=== PATIENT | male | born 1930 | race Caucasian/White ===

== ENCOUNTER 2016-06-20 08:31 | Emergency (ER) | payer OTHER ==
[~2016-06-20] VITALS: Ht 180.3 cm; Wt 82.6 kg
[~2016-06-20 08:31] MED LIST: FLM4 PO; FLUT0.0529 NAE; LSN25 PO; SENN-104 PO
[2016-06-20 08:44] VITALS: TEMP 36.3; Ht 180.3 cm; Wt 82.6 kg
[2016-06-20] MEDS ORDERED: LSN25 PO (09:06)
[2016-06-20] MEDS ORDERED: FLM4 PO (09:06)
[2016-06-20 09:40] VITALS: BP 144/79; PULSE 76; O2SAT 97
--- NOTE | 2016-06-20 17:19 | EMERGENCY ROOM VISIT NOTE ---
ED Visit Note First contact with patient: 08:49 Chief Complaint: Tick bite. History of Present Illness: Mr. Ghosh is an 86-year-old white male who ambulates into the ED accompanied by his complaining of a tick embedded on the left side of his scrotum. Patient reports that he was showering this morning and felt something odd on the left side of the scrotum. He had his come look at it and they observed the tick. He is not exactly sure when and embedded himself on the scrotum. Currently he is not having any symptoms and denies any fevers, chills , sweats, skin eruptions, skin color changes, joint pain, nausea, vomiting, scrotal pain, urinary symptoms. Review of Systems: As noted above in history of present illness. Past Medical History: Hypertension, skin cancer, status post surgeries for renal cancer, prostrate cancer and unspecified hernias. Current Medications: Tamsulosin, lisinopril. Allergies to Medications: Patient denies. Social History: Patient is currently retired; he feels safe in his home environment; he denies tobacco use and admits to alcohol use. Tetanus Immunization Status: 2002. Physical Examination: Vital Signs: Date Time Temp Pulse Resp B/P Pulse Ox O2 Delivery O2 Flow Rate FiO2 06/20/16 09:40 76 18 144/79 97 06/20/16 08:44 36.3 76 18 144/79 97 Room Air GENERAL: 86-year-old male in no acute distress, nontoxic-appearing, afebrile and hemodynamically stable. NEUROLOGICAL: Awake, alert and oriented to person, place and time. Answering questions appropriately and following commands. Normal gait. Good hand eye coordination. No focal motor sensory deficits. SKIN: Warm, dry and pink. No soft tissue eruptions noted. THORAX: Lungs sounds are clear to auscultation and equal bilaterally with symmetrical chest wall. ABDOMEN: Flat, soft and nontender. Positive bowel sounds in all quadrants. No guarding, rigidity or organomegaly. GENITALS: Circumcised, mature penis. No rashes or erythema. No drainage from the meatus. Scrotum is not erythematous or edematous. I do note that there is a tick embedded over the left lateral scrotum. There is no local erythema or edema. There is no localized tenderness. After removal of the tick a second assessment was performed and showed the same. ED Course: Patient is assessed as noted above. Tick Removal: The left side of the scrotum was cleansed with antibacterial soap and water. Using a tick twister tick was easily removed on the first attempt. The area where the tick was embedded was re-cleansed with antibacterial soap and water and a small tab of antibiotic ointment was applied. Patient was educated about tonight's findings and instructed on his treatment plan; he verbalizes understanding and agreement with this plan. Clinical Impression: Tick bite. Disposition: Patient discharged home in stable condition accompanied by his ; prior to departure he was reassessed and remained pain and symptom-free. Plan: Comfort measures, wound care and signs of infection and signs of Lyme's disease were discussed with the patient. Patient was encouraged to follow-up with family physician or return to the ED for any signs of infection, signs of Lyme's disease or any new/concerning symptoms.
== END 2016-06-20 09:40 | disposition home or self-care (01) ==
LOC: C.EDB 08:32 → C.EDA 09:40
DX: S30.94XA Unspecified superficial injury of scrotum and testes, initial encounter (principal); W57.XXXA Bitten or stung by nonvenomous insect and other nonvenomous arthropods, initial encounter; I10 Essential (primary) hypertension; Z85.828 Personal history of other malignant neoplasm of skin; Z85.46 Personal history of malignant neoplasm of prostate

== ENCOUNTER → 2016-09-21 | Outpatient (CLI) | payer OTHER ==
[~2016-09-21] MED LIST changes: -FLUT0.0529 NAE; -SENN-104 PO
== END | disposition home or self-care (01) ==
LOC: C.PATHSPEC 11:38
PROVIDERS: ATTEND Ophthalmology
DX: L98.0 Pyogenic granuloma (principal); H11.89 Other specified disorders of conjunctiva

== ENCOUNTER → 2017-01-14 | Outpatient (CLI) | payer OTHER ==
--- NOTE | 2017-01-14 10:01 | DIAGNOSTIC IMAGING REPORT ---
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 No evidence for cardiac enlargement. No focal infiltrate. Diaphragms are smooth. IMPRESSION: Chronic change. No acute process. No change from the prior study. The above report was generated using voice recognition software. It may contain grammatical, syntax or spelling errors. Electronically signed by: Charles Colbert M.D. 01/14/2017 10:00 AM Dictated Date/Time: 01/14/2017 9:59 AM
== END | disposition home or self-care (01) ==
LOC: C.RAD 09:42
PROVIDERS: ATTEND Urology
DX: C64.9 Malignant neoplasm of unspecified kidney, except renal pelvis (principal)

== ENCOUNTER → 2017-06-08 | Outpatient (CLI) | payer OTHER ==
[2017-06-08 10:20] LABS: BASO % 0.6 %; BASO ABS # 0.03 K/uL (0-0.2); EOS % 2.9 %; EOS ABS # 0.15 K/uL (0-0.5); HEMATOCRIT 43.3 % (42-52); HEMOGLOBIN 14.7 g/dL (14.0-18.0); LYMPH % 43.1 %; LYMPH ABS # 2.23 K/uL (1.2-3.4); MEAN CELL VOLUME 95.4 fL (80-100); MEAN CORPUSCULAR HEMOGLOBIN 32.4 pg (25-34); MEAN CORPUSCULAR HGB CONC 33.9 g/dl (32-36); MEAN PLATELET VOLUME 11.3 fL (7.4-10.4); MONO % 11.6 %; NEUT % 41.8 %; NEUT ABS # 2.17 K/uL (1.4-6.5); PLATELET COUNT 167 K/uL (130-400); RED CELL DISTRIBUTION WIDTH CV 12.6 % (11.5-14.5); RED CELL DISTRIBUTION WIDTH SD 43.8 fL (36.4-46.3); WHITE BLOOD COUNT 5.18 K/uL (4.8-10.8)
[2017-06-08 10:34] LABS: ALBUMIN 3.5 gm/dl (3.4-5.0); ALT/SGPT 27 U/L (12-78); AST/SGOT 23 U/L (15-37); BLOOD UREA NITROGEN 20 mg/dl (7-18); CALCIUM 8.5 mg/dl (8.5-10.1); CARBON DIOXIDE 28 mmol/L (21-32); CREATININE 1.22 mg/dl (0.60-1.40); GLUCOSE 90 mg/dl (70-99); POTASSIUM 4.3 mmol/L (3.5-5.1); SODIUM 138 mmol/L (136-145)
[2017-06-08 10:37] LABS: HEMOGLOBIN A1C 5.6 % (4.5-5.6)
[2017-06-08 10:44] LABS: ALKALINE PHOSPHATASE 86 U/L (45-117); TOTAL PROTEIN 7.1 gm/dl (6.4-8.2)
[2017-06-10 05:40] LABS: METHYLMALONIC ACID 268 NMOL/L (87-318)
== END ==
LOC: C.LABVPSUW 09:21
PROVIDERS: ATTEND Internal Medicine Critical Care Medicine
DX: D64.9 Anemia, unspecified (principal); G62.9 Polyneuropathy, unspecified; E03.9 Hypothyroidism, unspecified

== ENCOUNTER → 2017-06-24 | Outpatient (CLI) | payer OTHER ==
[~2017-06-24] MED LIST changes: +CEPH500C2 PO; +FLUT0.15 INTNAS; +HYDR-5688 PO; +SENN-91 PO
== END | disposition home or self-care (01) ==
LOC: C.CPL 10:27
PROVIDERS: ATTEND Surgery
DX: Z01.818 Encounter for other preprocedural examination (principal); K40.91 Unilateral inguinal hernia, without obstruction or gangrene, recurrent; R94.31 Abnormal electrocardiogram [ECG] [EKG]

== ENCOUNTER 2017-06-30 09:24 | Observation (INO) | payer OTHER ==
[2017-06-25 08:19] VITALS: BMI 25.0
[2017-06-28 14:30] VITALS: O2SAT 98
[~2017-06-30] VITALS: Ht 180.3 cm; Wt 81.8 kg
[2017-06-30] VITALS (9 sets, daily range): BP systolic 138–160; BP diastolic 81–96; PULSE 70–96; TEMP 36.5–36.8; O2SAT 94–99; Ht 180.3 cm; Wt 81.8 kg
[~2017-06-30 09:24] MED LIST changes: +ATROPINE SULFATE 0.1 MG/ML 5ML SYR IV PRN; +CEFAZOLIN 2000MG IV PUSH 15 ML IV SCH; -CEPH500C2 PO; +EpHEDrine SULFATE INJ 50 MG/ML AMP IV PRN; -HYDR-5688 PO; +HYDROmorphone INJ 2 MG/ML SYR/VIAL IV PRN; +LACTATED RINGER'S 1000ML IV SCH; +ONDANSETRON INJ 2 MG/ML 2 ML VIAL IV PRN; +PHENYLEPHRINE 100MCG/ML 5ML SYR IV PRN
--- NOTE | 2017-06-30 10:26 | History & Physical Bridge Note ---
H&P Re-Evaluation Bridge Note: I have examined the patient, reviewed the History & Physical and in the interval since the performance of the History & Physical I have noted the following changes of clinical significance: No changes noted
[2017-06-30] MEDS ORDERED: BUPIVACAINE 0.5 % 5 MG/1 ML MPF 30ML VIAL ONE (11:47)
[2017-06-30] MEDS ORDERED: LIDOCAINE HCL 1% 20 ML VIAL ONE (11:47)
[2017-06-30] MEDS: CEFAZOLIN SOD 1 GM VIAL ONE (11:47)
[2017-06-30] MEDS ORDERED: FENTANYL CITRATE INJ 50 MCG/1 ML 2 ML VIAL ONE ×2 (11:47→12:42)
[2017-06-30] MEDS ORDERED: DEXAMETHASONE SOD INJ 4 MG/ML VIAL ONE (12:25)
[2017-06-30] MEDS ORDERED: PROPOFOL IV EMULSION 10 MG/ML 20 ML VIAL IV ONE (12:25)
[2017-06-30] MEDS ORDERED: ROCURONIUM BROMIDE 10 MG/ML 5 ML VIAL IV ONE (12:25)
[2017-06-30] MEDS ORDERED: LIDOCAINE HCL 2% 2 ML VIAL (20MG/ML) ONE (12:25)
[2017-06-30] MEDS ORDERED: ONDANSETRON INJ 2 MG/ML 2 ML VIAL ONE (12:26)
[2017-06-30] MEDS ORDERED: PHENYLEPHRINE 100MCG/ML 5ML SYR ONE (13:03)
[2017-06-30] MEDS ORDERED: NEOSTIGMINE METHYLSULFATE 5 MG/5 ML SYR ONE (13:25)
[2017-06-30] MEDS ORDERED: GLYCOPYRROLATE INJ 0.2 MG/ML VIAL ONE (13:25)
--- NOTE | 2017-06-30 13:27 | [facility] Operative Report ---
Operative Report Operative Date Jun 30, 2017. Pre-Operative Diagnosis Recurrent Left Inguinal Hernia Post-Operative Diagnosis Recurrent Left Inguinal Hernia Procedure(s) Performed Open Left Inguinal Hernia Repair Surgeon Dr Rahman Senior Controls Technician Surgeon(s) Jason Cleary PA-C Estimated Blood Loss 20cc Findings indirect Lt ing hernia Drains None Anesthesia Type General Complication(s) none Disposition Recovery Room / PACU I attest to the content of the Intraoperative Record and any orders documented therein. Any exceptions are noted below.
[2017-06-30] MEDS ORDERED: LACTATED RINGER'S 1000ML 1,000 ML IV SCH (13:28)
[2017-06-30] MEDS ORDERED: MoRPHine SULFATE 2 MG/ML CARP IV PRN (13:30)
[2017-06-30] MEDS ORDERED: MoRPHine SULFATE 4 MG/ML 1 ML CARP\\VIAL IV PRN (13:30)
[2017-06-30] MEDS ORDERED: ONDANSETRON INJ 2 MG/ML 2 ML VIAL IV PRN (13:30)
[2017-06-30] MEDS ORDERED: HYDROCODONE/ACETAMIN 5/325MG TAB PO PRN ×2 (13:30)
[2017-06-30] MEDS ORDERED: IV FLUIDS COMPLETED PRN (14:15)
--- NOTE | 2017-06-30 14:16 | Anesthesiology Progress Note ---
Anesthesia Post Op Note Date & Time Jun 30, 2017 at 14:16 Vital Signs Pain Intensity: 0 Vital Signs Past 12 Hours Date Time Temp Pulse Resp B/P (MAP) Pulse Ox O2 Delivery O2 Flow Rate FiO2 06/30/17 14:10 36.3 79 16 136/81 (102) 96 Nasal Cannula 2 06/30/17 14:06 78 13 06/30/17 14:06 79 13 134/77 97 06/30/17 14:01 80 14 134/77 97 06/30/17 14:01 80 14 06/30/17 13:56 81 20 125/76 98 06/30/17 13:56 81 20 06/30/17 13:51 81 13 128/86 98 06/30/17 13:51 82 13 06/30/17 13:47 133/83 06/30/17 13:46 79 12 97 06/30/17 13:46 79 12 06/30/17 13:46 36.2 77 14 133/83 (94) 97 Oxymask 10 06/30/17 09:53 36.7 81 18 139/83 (101) 96 Room Air Notes Mental Status: alert / awake / arousable, participated in evaluation Pt Amnestic to Procedure: Yes Nausea / Vomiting: adequately controlled Pain: adequately controlled Airway Patency, RR, SpO2: stable & adequate BP & HR: stable & adequate Hydration State: stable & adequate Anesthetic Complications: no major complications apparent
--- NOTE | 2017-06-30 14:47 | OPERATIVE REPORT ---
DATE OF OPERATION: 06/30/2017 NAME OF OPERATION: Open recurrent left inguinal hernia repair. PREOPERATIVE DIAGNOSIS: Left inguinal hernia. POSTOPERATIVE DIAGNOSIS: Left inguinal hernia with indirect defect. STAFF SURGEON: Dr. Rahman. SURGICAL INSTRUMENT TECHNICIAN: Aldo Cleary PA-C. ANESTHESIA: General. PROCEDURE: Patient was brought in the operating room and placed on the operating table in supine position. His left lower quadrant prepped and draped in usual fashion. He had a previous scar from prior repair. The patient had also undergone prior laparoscopic repair. A 0.5% plain Marcaine was used to anesthetize the skin and subcutaneous tissue. Incision made carrying dissection down through scar tissue, identifying the external oblique fibers laterally and then the cord structures with the hernia more medially. The external oblique fibers were incised along their length from lateral to medial. There was significant scar tissue around the hernia sac and cord structures from prior repair. With some difficulty these tissues were mobilized, identifying the superior and inferior edges of the external oblique fiber as well as the inguinal ligament. The hernia sac appeared to be indirect. It was dissected away from the cord structures and then reduced. The internal ring was then reinforced using a mesh plug which was secured to surrounding tissue using 2-0 Ethibond suture and I also used some 0 silk suture during the repair. At this point, a large mesh patch was placed into the floor of the canal medial to lateral around the cord structures over the plug. It was secured using both 2-0 Ethibond suture and 0 silk suture. At this point, I was able to close the external oblique fibers over the mesh medial and lateral around the cord structures using both 2-0 Ethibond suture and 0 silk suture. Site was irrigated with antibiotic solution. It was anesthetized using 0.5% plain Marcaine. The subcutaneous tissue was reapproximated using 2-0 plain catgut suture then the skin reapproximated using 4-0 nylon suture. My golf player assistant helped with prepping, draping, exposure of the hernia, repair of the hernia and closure of the wound. Patient was transferred to recovery room in stable condition. I attest to the content of the Intraoperative Record and any orders documented therein. Any exception s are noted below.
[2017-06-30] MEDS ORDERED: HydrALAZINE HCL 20 MG/ML VIAL IV. PRN (17:00)
--- NOTE | 2017-06-30 17:14 | Medical Consult ---
Consultation Date of Consultation: Jun 30, 2017. Attending Physician: Clya Rahman M.D. Reason for Consultation: Medical co-management History of Present Illness 87 years old man with past medical history of prostate cancer status post seeding, right renal cell carcinoma status post nephrectomy in 2000, and hypertension presented to the hospital for an elective Open recurrent left inguinal hernia repair. Procedure went uneventful. Blood pressure was slightly elevated after the surgery, patient said that he did not take his blood pressure medications this morning, which is lisinopril 2.5 mg daily. He was ordered an extra dose of lisinopril now, and hydralazine as needed systolic blood pressure more than 165 Past Medical/Surgical History Medical Problems: (1) Tick bite Status: Acute Social History Smoking Status: Never Smoker Marital Status: Occupation Status: retired Allergies Coded Allergies: No Known Allergies (Unverified , 06/30/17) Current Inpatient Medications Current Inpatient Medications Medications (Trade) Dose Ordered Sig/Lestre Route Start Time Stop Time Status Last Admin Dose Admin Lisinopril (Zestril Tab) 2.5 mg QAM PO 07/01/17 09:00 07/31/17 08:59 Senna/Docusate Sodium (Senokot S Tab) 2 tab QAM PO 07/01/17 09:00 07/31/17 08:59 Tamsulosin HCl (Flomax Cap) 0.4 mg QAM PO 07/01/17 09:00 07/31/17 08:59 Lactated Ringer's 1,000 ml @ 50 mls/hr Q20H IV 06/30/17 13:28 06/30/17 17:00 Cefazolin Sodium 1000 mg/Syringe 7.5 ml @ 2.5 mls/min Q8H IV 06/30/17 20:00 07/10/17 13:29 Acetaminophen/ Hydrocodone Bitart ([place] 5/325 Tab) 1 tab Q4 PRN PO 06/30/17 13:30 07/14/17 13:29 Acetaminophen/ Hydrocodone Bitart ([place] 5/325 Tab) 2 tab Q4 PRN PO 06/30/17 13:30 07/14/17 13:29 Morphine Sulfate (MoRPHine SULFATE INJ) 2 mg Q4H PRN IV 06/30/17 13:30 07/14/17 13:29 Morphine Sulfate (MoRPHine SULFATE INJ) 4 mg Q4H PRN IV 06/30/17 13:30 07/14/17 13:29 Ondansetron HCl (Zofran Inj) 4 mg Q6H PRN IV 06/30/17 13:30 07/30/17 13:29 Senna/Docusate Sodium (Senokot S Tab) 1 tab TODAY@2100 PO 06/30/17 21:00 06/30/17 21:01 Miscellaneous (Iv Fluids Completed) 1 ea PRN PRN N/A 06/30/17 14:15 06/30/18 14:14 Review of Systems Review of system Constitutional: No fever / no chills / no sweats / no weakness / no fatigue Eyes: no blurring of vision / no eye pain / no discharge / no redness ENT: no hearing loss / no epistaxis /no swallowing problems Respiratory: no cough / no wheezing / no SOB / no hemoptysis Cardiovascular: no Chest pain / no lower extremity edema / no palpitation Abdomen: no pain / no nausea / no vomiting / no constipation Musculoskeletal: no joint pain / no muscle pain / no joint swelling Genitourinary: no dysuria / no incontinence / no urinary retention Neurologic: no focal weakness / no numbness/tingling / no ataxia Psychiatric: no depression symptoms / no anxiety / no insomnia Endocrine: no excessive thirst / no excessive urination Hematologic: no abnormal bleeding / no bruising / no LN swelling Skin: No rash / no pallor Physical examination General patient appears to be comfortable, not in acute distress HEENT: Atraumatic , normocephalic /no jaundice /no pallor /anicteric /no dry mucous membrane /normal external ear inspection Neck: Supple /no swelling /central trach Heart: S1/S2 normal/regular rate and rhythm/no gallop /no rub /no murmur Lungs: Clear to auscultation bilaterally/normal chest with expansion/no rhonchi/ no rales/no wheezing/no use of accessory muscles of respiration Abdomen: Soft/nontender/no guarding/no rebound/no organomegaly/no pulsatile mass Musculoskeletal: No swelling/no edema/no tenderness/normal range of motion Neuro exam: Awake alert oriented 3/cranial nerves II through XII appear to be intact/sensation intact/moves all extremities/no abnormal movements Psychiatric evaluation: No depressed mood/normal affect Skin: No rash on exposed skin area/no erythema Extremity: Normal pulse/no pitting edema/no clubbing or cyanosis Endocrine/lymphatic: No obvious lymphadenopathy /no lymphedema Physical Exam Date Time Temp Pulse Resp B/P (MAP) Pulse Ox O2 Delivery O2 Flow Rate FiO2 06/30/17 16:52 36.6 88 16 158/87 (110) 96 Room Air 06/30/17 16:02 36.7 73 18 149/82 (104) 98 Nasal Cannula 2.0 06/30/17 15:45 Nasal Cannula 2.0 06/30/17 15:11 36.5 70 18 160/96 (117) 99 Nasal Cannula 2.0 06/30/17 14:30 36.5 73 18 148/81 (103) 98 Nasal Cannula 2.0 06/30/17 14:22 77 19 06/30/17 14:22 76 19 97 06/30/17 14:21 133/82 06/30/17 14:17 76 13 06/30/17 14:17 76 13 97 06/30/17 14:16 136/88 06/30/17 14:12 79 14 06/30/17 14:12 79 14 98 06/30/17 14:11 136/81 06/30/17 14:10 36.3 79 16 136/81 (102) 96 Nasal Cannula 2 06/30/17 14:07 78 13 96 06/30/17 14:07 78 13 06/30/17 14:06 78 13 06/30/17 14:06 79 13 134/77 97 06/30/17 14:01 80 14 134/77 97 06/30/17 14:01 80 14 06/30/17 13:56 81 20 125/76 98 06/30/17 13:56 81 20 06/30/17 13:51 81 13 128/86 98 06/30/17 13:51 82 13 06/30/17 13:47 133/83 06/30/17 13:46 79 12 97 06/30/17 13:46 79 12 06/30/17 13:46 36.2 77 14 133/83 (94) 97 Oxymask 10 06/30/17 09:53 36.7 81 18 139/83 (101) 96 Room Air Assessment & Plan 87 years old man with past medical history of prostate cancer status post seeding, right renal cell carcinoma status post nephrectomy in 2000, and hypertension presented to the hospital for an elective Open recurrent left inguinal hernia repair. Procedure went uneventful. Blood pressure was slightly elevated after the surgery, patient said that he did not take his blood pressure medications this morning, which is lisinopril 2.5 mg daily. He was ordered an extra dose of lisinopril now, and hydralazine as needed systolic blood pressure more than 165 Assessment: recurrent left inguinal hernia that failed outpatient conservative measures. Patient presented to the hospital for an elective repair procedure Hypertension History of right renal cell carcinoma status post right nephrectomy in 2000 History of prostate cancer status post seeding 2000 Plan Status post surgical repair procedure, went uneventful full Patient tolerated procedure well with minimal blood loss Appears to be stable Continue outpatient medications, will give an extra dose now off lisinopril Also will write for as needed hydralazine if systolic blood pressure more than 165 Follow-up labs, in a.m. Ensure adequate oral/parenteral intake Pain management Physical therapy initiation as per primary surgical team if needed DVT prophylaxis as per the choice of primary surgical team Answered all patient's questions Appears to be medically stable We will see the patient as needed , otherwise please feel free to contact us if you have any question or any of his blood work was abnormal If blood work is normal patient is medically cleared for discharge tomorrow at the discretion of the surgical team.
[2017-06-30] MEDS ORDERED: LISINOPRIL 2.5 MG TAB PO ONE (17:15)
[2017-06-30] MEDS: CEFAZOLIN IV 1,000 MG in SYRINGE 0 ML IV SCH (20:07)
[2017-06-30] MEDS ORDERED: DOCUSATE SODIUM/SENNA 50/8.6MG TAB PO SCH (21:00)
[2017-06-30] MEDS ORDERED: NURSING VERBAL MED ORDER ONE (22:15)
[2017-06-30] MEDS: ACETAMINOPHEN 325 MG TAB PO PRN (22:23)
[2017-07-01 03:18] VITALS: BP 146/79; PULSE 82; TEMP 36.6; O2SAT 94
[2017-07-01] MEDS: CEFAZOLIN IV 1,000 MG in SYRINGE 0 ML IV SCH (03:34)
[2017-07-01] MEDS: ACETAMINOPHEN 325 MG TAB PO PRN (05:19)
[2017-07-01] MEDS ORDERED: CEPH500C2 PO (05:45)
[2017-07-01] MEDS ORDERED: HYDR-5688 PO (05:45)
--- NOTE | 2017-07-01 05:48 | Discharge Instructions ---
Discharge Instructions Date of Service Jul 01, 2017. Admission Reason for Admission: Recurrent Left Inguinal Hernia Discharge Discharge Diagnosis / Problem: recurrent Lt inguinal hernia Discharge Goals Goal(s): Decrease discomfort, Improve function, Improve disease control Activity Recommendations Activity Limitations: as noted below Lifting Limitations: no more than 25 pounds Exercise/Sports Limitations: until after follow-up appointment May Resume Sexual Activity: when tolerated Shower/Bathe: tomorrow Driving or Machine Use: wait to drive for one week . Instructions / Follow-Up Instructions / Follow-Up SPECIAL CARE INSTRUCTIONS: * Cover incisions and change daily for comfort/drainage. * Avoid constipation - may use Senokot S and Milk of magnesia twice daily or similar as directed on package * May use Tylenol/ acetaminophen as tolerated * Expect some swelling and bruising. Call your doctor if: * Temperature above 101 degrees * Pain not relieved by pain medicine ordered * There is increased drainage or redness from any incision * You have any unanswered questions or concerns [phone]. FOLLOW UP VISIT: If not already scheduled, please call the office for a follow-up visit. for next week- some suture removal OFFICE PHONE NUMBER: Dr. Rahman Office Current Hospital Diet Patient's current hospital diet: Regular Diet Discharge Diet Recommended Diet: Regular Diet Procedures Procedures Performed: Open Left Inguinal Hernia Repair Pending Studies Studies pending at discharge: no Laboratory Results Hemoglobin A1c Test 06/08/17 08:00 Range/Units Estimated Average Glucose 114 mg/dl Hemoglobin A1c 5.6 4.5-5.6 % Medical Emergencies . Who to Call and When: Medical Emergencies: If at any time you feel your situation is an emergency, please call 911 immediately. . Non-Emergent Contact Non-Emergency issues call your: Primary Care Provider, Surgeon . "Provider Documentation" section prepared by Clay Rahman. .
--- NOTE | 2017-07-01 06:53 | DISCHARGE SUMMARY ---
PRINCIPAL DIAGNOSIS: Recurrent left inguinal hernia. PROCEDURES: The patient underwent open recurrent left inguinal hernia repair. HISTORY OF PRESENT ILLNESS: The patient is an 87-year-old male who has had a prior open left inguinal hernia repair and also laparoscopic left inguinal hernia repair with recurrence. HOSPITAL COURSE: The patient was brought into the hospital on 06/30/2017 where he underwent open recurrent left inguinal hernia repair. It was somewhat difficult secondary to the redo type operation. He has done quite well overnight, has minimal pain and has been walking well and voiding. He is felt stable for discharge home today to be followed in the surgical clinic within 1 week.
[2017-07-01 07:33] VITALS: O2SAT 94
[2017-07-01 07:39] VITALS: BP 146/79; PULSE 82; TEMP 36.6; O2SAT 94
[2017-07-01 08:06] VITALS: BP 122/82; PULSE 80; TEMP 36.6; O2SAT 96
[2017-07-01 08:59] LABS: BASO % 0.1 %; BASO ABS # 0.01 K/uL (0-0.2); EOS % 0.3 %; EOS ABS # 0.03 K/uL (0-0.5); HEMATOCRIT 44.6 % (42-52); HEMOGLOBIN 14.8 g/dL (14.0-18.0); IG# 0.03 K/uL (0.00-0.02); LYMPH % 21.5 %; MEAN CELL VOLUME 94.7 fL (80-100); MEAN CORPUSCULAR HEMOGLOBIN 31.4 pg (25-34); MEAN CORPUSCULAR HGB CONC 33.2 g/dl (32-36); MEAN PLATELET VOLUME 10.5 fL (7.4-10.4); MONO % 10.9 %; MONO ABS # 1.11 K/uL (0.11-0.59); NEUT % 66.9 %; NEUT ABS # 6.83 K/uL (1.4-6.5); PLATELET COUNT 138 K/uL (130-400); RED CELL DISTRIBUTION WIDTH CV 12.6 % (11.5-14.5); RED CELL DISTRIBUTION WIDTH SD 43.9 fL (36.4-46.3); WHITE BLOOD COUNT 10.21 K/uL (4.8-10.8)
[2017-07-01] MEDS ORDERED: DOCUSATE SODIUM/SENNA 50/8.6MG TAB PO SCH (09:00)
[2017-07-01] MEDS ORDERED: TAMSULOSIN HCL 0.4 MG CAP PO SCH (09:00)
[2017-07-01] MEDS ORDERED: LISINOPRIL 2.5 MG TAB PO SCH (09:00)
[2017-07-01 09:37] LABS: ALBUMIN 3.3 gm/dl (3.4-5.0); CALCIUM 8.7 mg/dl (8.5-10.1); CREATININE 1.23 mg/dl (0.60-1.40); POTASSIUM 4.2 mmol/L (3.5-5.1)
== END 2017-07-01 10:00 | disposition home or self-care (01) ==
LOC: C.ACU 09:24 → ENRESERV 14:19 → C.MSW 14:44
PROVIDERS: ADMIT Surgery; ATTEND Surgery
DX: K40.91 Unilateral inguinal hernia, without obstruction or gangrene, recurrent (principal); I10 Essential (primary) hypertension; Z85.46 Personal history of malignant neoplasm of prostate; Z85.528 Personal history of other malignant neoplasm of kidney; Z90.5 Acquired absence of kidney; Z82.49 Family history of ischemic heart disease and other diseases of the circulatory system

== ENCOUNTER → 2017-09-27 | Outpatient (CLI) | payer OTHER ==
[~2017-09-27] MED LIST changes: -ATROPINE SULFATE 0.1 MG/ML 5ML SYR IV PRN; -CEFAZOLIN 2000MG IV PUSH 15 ML IV SCH; +CEPH500C2 PO; -EpHEDrine SULFATE INJ 50 MG/ML AMP IV PRN; +HYDR-5688 PO; -HYDROmorphone INJ 2 MG/ML SYR/VIAL IV PRN; -LACTATED RINGER'S 1000ML IV SCH; -ONDANSETRON INJ 2 MG/ML 2 ML VIAL IV PRN; -PHENYLEPHRINE 100MCG/ML 5ML SYR IV PRN
== END ==
LOC: C.LABVPSUW 09-23 09:54
PROVIDERS: ATTEND Internal Medicine Critical Care Medicine
DX: R53.83 Other fatigue (principal); T14.90XA Injury, unspecified, initial encounter; W57.XXXA Bitten or stung by nonvenomous insect and other nonvenomous arthropods, initial encounter

== ENCOUNTER 2018-05-28 10:42 | Inpatient (IN) ==
[2018-05-28 11:22] LABS: Basophils # (auto) 0.01 K/uL (0-0.2); Basophils % (auto) 0.2 %; Eosinophils # (auto) 0.12 K/uL (0-0.5); Eosinophils % (auto) 1.9 %; Hemoglobin 15.4 g/dL (14.0-18.0); Immature Granulocytes # (auto) 0.01 K/uL (0.00-0.02); Immature Granulocytes % (auto) 0.2 %; Lymphocytes # (auto) 2.16 K/uL (1.2-3.4); Mean Corpuscular Hgb Conc 34.2 g/dL (32-36); Mean Corpuscular Volume 94.3 fL (80-100); Mean Platelet Volume 11.5 fL (7.4-10.4); Monocytes # (auto) 0.59 K/uL (0.11-0.59); Monocytes % (auto) 9.6 %; Neutrophils # (auto) 3.28 K/uL (1.4-6.5); Neutrophils % (auto) 53.1 %; Platelet Count 128 K/uL (130-400); RDW Coefficient of Variation 12.8 % (11.5-14.5); Red Blood Count 4.77 M/uL (4.7-6.1); White Blood Count 6.17 K/uL (4.8-10.8)
[2018-05-28] MEDS ORDERED: SODIUM CHLORIDE 0.9% 500 ML IV ONE (11:26)
[2018-05-28] MEDS ORDERED: ONDANSETRON INJ 2 MG/ML 2 ML VIAL IV STA (11:26)
[2018-05-28 11:30] LABS: Prothrombin Time 10.6 Seconds (9.0-12.0)
[2018-05-28 11:40] LABS: Alanine Aminotransferase 24 U/L (12-78); Albumin Level 3.6 gm/dl (3.4-5.0); Aspartate Aminotransferase 25 U/L (15-37); BUN Creatinine Ratio 15.5 (10-20); Blood Urea Nitrogen 19 mg/dl (7-18); Calcium 8.4 mg/dl (8.5-10.1); Carbon Dioxide 30 mmol/L (21-32); Chloride 104 mmol/L (98-107); Creatinine Clr Calc Pharmacy 45.8 ml/min; Est GFR (Non-African American) 53.5; Glucose 94 mg/dl (70-99); Magnesium 2.1 mg/dl (1.8-2.4); Potassium 4.1 mmol/L (3.5-5.1); Sodium 137 mmol/L (136-145)
[2018-05-28 11:45] LABS: Alkaline Phosphatase 84 U/L (45-117); Bilirubin,Total 0.8 mg/dl (0.2-1); Globulin 3.5 gm/dl (2.5-4.0); Total Protein 7.1 gm/dl (6.4-8.2); Troponin I < 0.015 ng/ml (0-0.045)
[2018-05-28] MEDS ORDERED: OPTIRAY 320 125ml IV PRN (12:45)
[2018-05-28] MEDS: SODIUM CHLORIDE 0.9% 1000ML 1,000 ML IV SCH ×2 (12:45→19:11)
--- NOTE | 2018-05-28 13:12 | CT Scan Report ---
CHEST , ABDOMEN, PELVIS CTA for AORTIC DISSECTION CT DOSE: 1415.46 mGy.cm HISTORY: epigastric pain into back TECHNIQUE: Multiaxial CT images of the chest, abdomen, and pelvis were performed both before and afte r the intravenous administration of contrast to evaluate the aorta. Maximal intensity projection imag es were also obtained. A dose lowering technique was utilized adhering to the principles of ALARA. COMPARISON STUDY: Abdomen and pelvis CT 02/12/2014. FINDINGS: Chest CTA: Noncontrast imaging through the chest shows no evidence for an intramural hematoma within the thoracic aorta. Normal caliber thoracic aorta with no evidence for dissection. No pleural or devan cardial effusions. The central pulmonary arteries are patent. The heart is normal in size. No mediast inal or hilar lymphadenopathy. No acute fractures within the visualized osseous structures of the zeke [address]. No pneumothorax. The central airways are patent. Mild diffuse interstitial thickening demonstrati ng a peripheral distribution. This favors a chronic interstitial pneumonitis/fibrosis. Otherwise, no focal lung consolidations to suggest pneumonia. Abdomen and pelvis CTA: Normal caliber abdominal aorta and iliac arteries with no evidence for dissec tion. The left kidney is surgically absent. There are 2 right renal arteries. The dominant renal julia ry demonstrates a slightly beaded appearance suggestive of fibromuscular dysplasia. No aneurysms iden tified at this time. The inferior mesenteric and superior mesenteric arteries are patent. Focal steno sis approximately 80% at the takeoff of the celiac artery. 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 The hepatic and splenic arteries are widely patent an d normal in caliber. No pneumoperitoneum. No pneumatosis. No suspicious lytic or blastic osseous lesi ons. Prior left inguinal hernia repair. A few small hypodense lesions within the right hepatic lobe m easuring up to 9 mm. These are technically too small to characterize. The gallbladder, pancreas, and spleen are unremarkable. There is a low-density 13 mm right adrenal gland nodule. Multiple hypodense lesions within the right kidney. The majorities are subcentimeter in size and too small to characteri ze. Dominant lesion within the interpolar region measures 1.6 cm and likely represents a cyst. No rig ht-sided hydronephrosis. There is also a 7 mm hypodense lesion within the lower pole the right kidney which does not clearly represent a simple cyst. However, this is stable compared to 2014 examination and therefore favors a complex cyst. No retroperitoneal lymphadenopathy. Multiple brachytherapy seed s within the prostate gland. The bladder is unremarkable. Colonic diverticulosis. No evidence for div erticulitis. Normal appendix. There are multiple loops of borderline dilated, fluid-filled small jason l. There are also multiple loops of mildly thickened small bowel within the right lower abdomen with adjacent mesenteric edema/fat stranding. There is a questionable transition point within the midabdom en as seen on image 322. Therefore, these findings may be secondary to a small bowel obstruction or a nonspecific enteritis. Given the mesenteric edema associated with the loops of small bowel to the ri ght lower quadrant this raises the possibility of a closed loop obstruction with developing vascular compromise. IMPRESSION: 1. There are multiple loops of borderline dilated, fluid-filled small bowel. There are also multiple loops of mildly thickened small bowel within the right lower abdomen with adjacent mesenteric edema/f at stranding. There is a questionable transition point within the midabdomen. Therefore, these findin gs may be secondary to a small bowel obstruction or a nonspecific enteritis. Given the mesenteric reena ma associated with the loops of small bowel to the right lower quadrant, this raises the possibility of a closed loop obstruction with developing vascular compromise. However, there is no pneumatosis. C linical correlation recommended to assess for an obstruction versus an infectious/inflammatory enteri tis. 2. No evidence for an aortic dissection. 3. The superior and inferior mesenteric vessels appear patent. 4. Slightly deviated appearance to the dominant right renal artery suggestive of fibromuscular dyspla dawn. No aneurysm identified. 5. Chronic interstitial lung disease/fibrosis. 6. The left kidney is surgically absent. 7. 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 8. A 13 mm right adrenal gland nodule. This is likely benign given the long-term stability. Electronically signed by: Clark Rowland M.D. 05/28/2018 1:10 PM
[2018-05-28 13:40] LABS: Appearance Urine Clear (Clear); Bilirubin Urine Negative (Negative); Blood Urine Negative (Negative); Color Urine Yellow; Glucose Urine UA Negative (Negative); Ketones Urine Trace (Negative); Leukocyte Esterase Urine Negative (Negative); Nitrite Urine Negative (Negative); Protein Urine Negative (Negative); Specific Gravity Urine 1.037 (1.000-1.030); Urobilinogen Urine Negative (Negative); pH Urine 7.5 (4.5-7.5)
[2018-05-28] MEDS ORDERED: fentaNYL citrate 100 MCG/2 ML VIAL IV STA (13:44)
--- NOTE | 2018-05-28 15:08 | Emergency Department Note ---
Entered by Dhara Mancilla acting as a scribe for Caren Reed DO History of Present Illness General Chief complaint: Abdominal Pain Stated complaint: SEVERE ABDOMINAL PAIN Time Seen by Provider: 05/28/18 11:08 Source: patient Mode of arrival: ambulatory Limitations: no limitations History of Present Illness Onset (ago): hour(s) 2 Location: abdomen Radiation: back Pain Consistency: + constant Maximum Pain Intensity: 5 Current Pain Intensity: 5 Relieved By: + medication Exacerbated By: + none Associated symptoms: + diaphoresis, + nausea/vomiting (+nausea, -vomiting) and + other (-urinary symptoms); no chest pain, no fever/chills and no shortness of breath Treatments prior to arrival: other (Maalox) The patient is an 88 year old male who presents to the Emergency Room with complaints of abdominal pain. He states this morning when he woke up, he felt fine and had a normal bowel movement. About 1 hour after waking, as he was sitting and reading the news, he started experiencing abdominal pain. He tried Maalox with minimal relief. He rates his pain as a 5/10 in severity and states the pain did radiate into his back. He denies eating anything unusual for breakfast. The patient has previously undergone hernia surgery. He notes he was nauseous earlier this morning but did not vomit. He denies any recent urinary symptoms. He denies any recent changes in medications. He denies any recent fevers or chills but admits to some diaphoresis. He denies any chest pain or shortness of breath. He notes his blood pressure was higher than normal when he checked it at home. He admits to a history of neuropathy but denies any recent changes in the numbness and tingling that he normally experiences in his legs. No recent change in diet or activity. No prior similar episodes. Home Medications Home Medications Medication Instructions Recorded Confirmed Type fluticasone propionate 50 1 sprays INTNAS DAILY PRN 04/01/18 05/28/18 History mcg/actuation nasal spray,suspension lisinopril 2.5 mg tablet 2.5 mg PO DAILY 04/01/18 05/28/18 History sennosides 8.6 mg tablet 8.6 mg PO DAILY PRN 04/01/18 05/28/18 History tamsulosin 0.4 mg capsule 0.4 mg PO DAILY 04/01/18 05/28/18 History Allergies Allergy/AdvReac Type Severity Reaction Status Date / Time No Known Allergies Allergy Verified 05/28/18 11:07 Past Med/Surg History Medical History H/O prostate cancer (Resolved) treated with radiation seeds in 2000 Osteoarthritis, knee (Chronic) Impaired renal function (Chronic) Hypertension (Chronic) Surgical History History of kidney removal (Chronic) 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 and A total of 10 systems reviewed and were otherwise negative Physical Exam Vital Signs Vital Signs - 24 hr 05/28/18 18:13 05/28/18 23:29 05/29/18 07:02 Temperature 36.8 C 37 C 36.8 C Temperature Source Oral Oral Oral Pulse Rate [Left Finger] 79 97 H 82 Respiratory Rate 19 18 16 Respiratory Depth Normal Blood Pressure [Left Arm] 156/92 H 136/62 128/78 Blood Pressure [Right Arm] Blood Pressure Mean [Left Arm] 113 86 94 Blood Pressure Mean [Right Arm] Blood Pressure Position [Left Arm] Sitting Sitting Lying Blood Pressure Position [Right Arm] Pulse Oximetry 96 96 93 Oxygen Delivery Method Room Air Room Air Room Air 05/29/18 15:26 Temperature 36.9 C Temperature Source Oral Pulse Rate [Left Finger] 88 Respiratory Rate 17 Respiratory Depth Blood Pressure [Left Arm] Blood Pressure [Right Arm] 137/74 Blood Pressure Mean [Left Arm] Blood Pressure Mean [Right Arm] 95 Blood Pressure Position [Left Arm] Blood Pressure Position [Right Arm] Lying Pulse Oximetry 92 Oxygen Delivery Method Room Air GENERAL: alert, uncomfortable appearing, well nourished, no distress, non-toxic EYE EXAM: normal conjunctiva, PERRL and EOM's grossly intact OROPHARYNX: no exudate, no erythema, lips, buccal mucosa, and tongue normal and mucous membranes are moist NECK: supple, no nuchal rigidity, no adenopathy, non-tender LUNGS: Clear to auscultation. Normal chest wall mechanics, no w/r/r HEART: no murmurs, S1 normal and S2 normal ABDOMEN: abdomen soft, tympanic to percussion, generalized abdominal discomfort with palpation, normo-active bowel sounds, no masses, no rebound or guarding. BACK: Back is symmetrical on inspection and there is no deformity, no midline tenderness, no CVA tenderness. SKIN: no rashes and no bruising UPPER EXTREMITIES: upper extremities are grossly normal. FROM, nml pulses b/l. LOWER EXTREMITIES: Trace bilateral lower extremity edema. FROM, nml pulses b/l. NEURO EXAM: Normal sensorium, cranial nerves II-XII intact, normal speech, no weakness of arms, no weakness of legs. Course 1112: Past medical records reviewed. The patient was evaluated in room D1, and a complete history and physical examination were performed. 1350: I reevaluated the patient. He is feeling well and resting comfortably. I updated him on his results so far and my recommendation he remain in the hospital for further evaluation and management and he and his verbalized complete understanding and agreement. 1359: I [facility] the [facility] The patient will be further evaluated. 1406: I discussed the patients case with Dr. Jerez [facility]. The patient can be treated conservatively. No need for an NG tube if the patient isn't vomiting. Consultations Consultation #1: I discussed the patients [facility] The patient will be further evaluated. Time: 13:59 Consultation #2: I discussed the patients case with Dr. Jerez [facility]. The patient will be further evaluated. Time: 14:06 Administered Medications Acetaminophen (Tylenol) 650 mg PO Q6H AFSANEH Stop: 06/27/18 20:59 Last Admin: 05/29/18 15:55 Dose: Not Given Documented by: [id number] Admin: 05/29/18 09:49 Dose: Not Given Documented by: [id number] Admin: 05/29/18 03:53 Dose: 650 mg Documented by: [id number] Admin: 05/28/18 21:06 Dose: 650 mg Documented by: [id number] Heparin Sodium (Porcine) (Heparin Sodium (Porcine)) 5,000 units SQ Q12 AFSANEH Stop: 06/27/18 20:59 Last Admin: 05/29/18 09:51 Dose: 5,000 units Documented by: [id number] Cosigned by: [id number] Admin: 05/28/18 21:06 Dose: 5,000 units Documented by: [id number] Cosigned by: [id number] Potassium Chloride/Dextrose/Sod Cl (D5nss + 20meq Kcl) 20 meq in 1,000 mls @ 100 mls/hr IV .Q10H [facility] Stop: 06/27/18 18:20 Last Admin: 05/29/18 15:53 Dose: 100 mls/hr Documented by: [id number] Infusion: 05/29/18 15:53 Dose: 100 mls/hr Documented by: [id number] Infusion: 05/29/18 14:38 Dose: 100 mls/hr Documented by: [id number] Infusion: 05/29/18 14:02 Dose: 0 mls/hr Documented by: [id number] Infusion: 05/29/18 11:00 Dose: 100 mls/hr Documented by: [id number] Infusion: 05/29/18 09:47 Dose: 0 mls/hr Documented by: [id number] Admin: 05/29/18 05:58 Dose: 100 mls/hr Documented by: [id number] Infusion: 05/29/18 05:58 Dose: 100 mls/hr Documented by: [id number] Admin: 05/28/18 20:26 Dose: 100 mls/hr Documented by: [id number] Ranitidine HCl 50 mg/ Dextrose 102 mls @ 200 mls/hr IV Q8 AFSANEH Stop: 06/28/18 08:29 Last Infusion: 05/29/18 14:38 Dose: 0 mls/hr Documented by: [id number] Admin: 05/29/18 14:02 Dose: 200 mls/hr Documented by: [id number] Infusion: 05/29/18 11:00 Dose: 0 mls/hr Documented by: [id number] Admin: 05/29/18 09:46 Dose: 200 mls/hr Documented by: [id number] Morphine Sulfate (Morphine Sulfate) 2 mg IV Q3H PRN PRN Reason: Pain Stop: 06/11/18 18:20 Last Admin: 05/29/18 04:36 Dose: 2 mg Documented by: [id number] Ondansetron HCl (Zofran) 4 mg IV Q6H PRN PRN Reason: Nausea Stop: 06/27/18 18:20 Last Admin: 05/29/18 04:40 Dose: 4 mg Documented by: [id number] Phenol (Chloraseptic 1.4% [place]) 2 sprays MT Q1H PRN PRN Reason: Sore Throat Stop: 06/28/18 14:24 Last Admin: 05/29/18 15:57 Dose: 1 sprays Documented by: [id number] Tamsulosin HCl (Flomax) 0.4 mg PO DAILY AFSANEH Stop: 06/28/18 08:59 Last Admin: 05/29/18 09:49 Dose: Not Given Documented by: [id number] Discontinued Medications Al Hydrox/Mg Hydrox/Simethicone (Maalox) 15 ml PO NOW STA Stop: 05/28/18 23:43 Last Admin: 05/28/18 23:53 Dose: 15 ml Documented by: [id number] Diphenhydramine HCl (Benadryl) 50 mg IV NOW STA Stop: 05/28/18 20:26 Last Admin: 05/28/18 21:07 Dose: 50 mg Documented by: [id number] Fentanyl Citrate (Fentanyl Citrate) 50 mcg IV NOW STA Stop: 05/28/18 13:45 Last Admin: 05/28/18 13:54 Dose: 50 mcg Documented by: [id number] Sodium Chloride (Nss) 500 mls @ 999 mls/hr IV .Q31M ONE Stop: 05/28/18 11:56 Last Infusion: 05/28/18 12:10 Dose: 0 mls/hr Documented by: [id number] Admin: 05/28/18 11:39 Dose: 999 mls/hr Documented by: [id number] Sodium Chloride (Nss 1000ml) 1,000 mls @ 200 mls/hr IV .Q5H AFSANEH Stop: 06/27/18 12:44 Last Admin: 05/28/18 19:11 Dose: Not Given Documented by: [id number] Infusion: 05/28/18 17:46 Dose: 0 mls/hr Documented by: [id number] Admin: 05/28/18 12:45 Dose: 200 mls/hr Documented by: [id number] Sodium Chloride (Nss 1000ml) 1,000 mls @ 999 mls/hr IV .Q1H1M ONE Stop: 05/28/18 16:43 Last Admin: 05/28/18 16:05 Dose: Not Given Documented by: [id number] Ioversol (Optiray 320 125ml) 107 ml IV ONCE PRN PRN Reason: Interaction Checking Stop: 06/01/18 12:44 Last Admin: 05/28/18 12:46 Dose: 107 ml Documented by: [id number] Morphine Sulfate (Morphine Sulfate) Confirm Administered Dose 2 mg .ROUTE .STK- MED ONE Stop: 05/28/18 18:33 Last Admin: 05/28/18 18:34 Dose: 2 mg Documented by: [id number] Ondansetron HCl (Zofran) 4 mg IV NOW STA Stop: 05/28/18 11:27 Last Admin: 05/28/18 11:37 Dose: 4 mg Documented by: [id number] Medical Decision Making Differential Diagnosis Differential diagnoses includes but is not limited to gastritis, peptic ulcer disease, GERD, gallbladder disease, pancreatitis, small bowel obstruction, acute coronary syndrome, pericarditis, ischemic bowel, irritable bowel disease, irrit able bowel syndrome, appendicitis, diverticulitis, malignancy, hernia, urinary tract infection, torsion, perforation, trauma, infectious. Medical Records Attestation: I reviewed the patient's medical records. Home Medications Current Medication List: was personally reviewed by me Laboratory Data Attestation: I reviewed the patient's lab results. Result diagrams: 05/29/18 05:18 05/29/18 05:18 Lab Results 05/28/18 05/28/18 05/28/18 Range/Units 11:15 11:15 11:15 WBC 6.17 (4.8-10.8) K/uL RBC 4.77 (4.7-6.1) M/uL Hgb 15.4 (14.0-18.0) g/dL Hct 45.0 (42-52) % MCV 94.3 (80-100) fL MCH 32.3 (25-34) pg MCHC 34.2 (32-36) g/dL RDW Std Deviation 44.0 (36.4-46.3) fL RDW Coeff of [place] 12.8 (11.5-14.5) % Plt Count 128 L (130-400) K/uL MPV 11.5 H (7.4-10.4) fL Immature Gran % (Auto) 0.2 % Neut % (Auto) 53.1 % Lymph % (Auto) 35.0 % [place] % (Auto) 9.6 % Eos % (Auto) 1.9 % Baso % (Auto) 0.2 % Immature Gran # (Auto) 0.01 (0.00-0.02) K/uL Neut # (Auto) 3.28 (1.4-6.5) K/uL Lymph # (Auto) 2.16 (1.2-3.4) K/uL [place] # (Auto) 0.59 (0.11-0.59) K/uL Eos # (Auto) 0.12 (0-0.5) K/uL Baso # (Auto) 0.01 (0-0.2) K/uL PT 10.6 (9.0-12.0) Seconds INR 1.0 (0.9-1.1) Sodium 137 (136-145) mmol/L Potassium 4.1 (3.5-5.1) mmol/L Chloride 104 (98-107) mmol/L Carbon Dioxide 30 (21-32) mmol/L Anion Gap 3.0 (3-11) BUN 19 H (7-18) mg/dl Creatinine 1.21 (0.6-1.4) mg/dl Est Cr Clr Drug Dosing 45.8 ml/min Est GFR ( Amer) 62.0 Est GFR (Non-Af Amer) 53.5 BUN/Creatinine Ratio 15.5 (10-20) Glucose 94 (70-99) mg/dl POC Lactic Acid Dewayne (0.90-1.70) mmol/L Calcium 8.4 L (8.5-10.1) mg/dl Magnesium 2.1 (1.8-2.4) mg/dl Total Bilirubin 0.8 (0.2-1) mg/dl AST 25 (15-37) U/L ALT 24 (12-78) U/L Alkaline Phosphatase 84 (45-117) U/L Troponin I < 0.015 (0-0.045) ng/ml Total Protein 7.1 (6.4-8.2) gm/dl Albumin 3.6 (3.4-5.0) gm/dl Globulin 3.5 (2.5-4.0) gm/dl Albumin/Globulin Ratio 1.0 (0.9-2) Lipase 88 (73-393) U/L Urine Color Urine Appearance (Clear) Urine pH (4.5-7.5) Ur Specific [place] (1.000-1.030) Urine Protein (Negative) Urine Glucose (UA) (Negative) Urine Ketones (Negative) Urine Blood (Negative) Urine Nitrite (Negative) Urine Bilirubin (Negative) Urine Urobilinogen (Negative) Ur Leukocyte Esterase (Negative) 05/28/18 05/28/18 05/29/18 Range/Units 11:37 13:30 05:18 WBC 8.71 (4.8-10.8) K/uL RBC 4.67 L (4.7-6.1) M/uL Hgb 15.0 (14.0-18.0) g/dL Hct 44.0 (42-52) % MCV 94.2 (80-100) fL MCH 32.1 (25-34) pg MCHC 34.1 (32-36) g/dL RDW Std Deviation 44.2 (36.4-46.3) fL RDW Coeff of [place] 12.9 (11.5-14.5) % Plt Count 132 (130-400) K/uL MPV 11.2 H (7.4-10.4) fL Immature Gran % (Auto) 0.2 % Neut % (Auto) 77.4 % Lymph % (Auto) 13.5 % [place] % (Auto) 8.8 % Eos % (Auto) 0.0 % Baso % (Auto) 0.1 % Immature Gran # (Auto) 0.02 (0.00-0.02) K/uL Neut # (Auto) 6.73 H (1.4-6.5) K/uL Lymph # (Auto) 1.18 L (1.2-3.4) K/uL [place] # (Auto) 0.77 H (0.11-0.59) K/uL Eos # (Auto) 0.00 (0-0.5) K/uL Baso # (Auto) 0.01 (0-0.2) K/uL PT (9.0-12.0) Seconds INR (0.9-1.1) Sodium (136-145) mmol/L Potassium (3.5-5.1) mmol/L Chloride (98-107) mmol/L Carbon Dioxide (21-32) mmol/L Anion Gap (3-11) BUN (7-18) mg/dl Creatinine (0.6-1.4) mg/dl Est Cr Clr Drug Dosing ml/min Est GFR ( Amer) Est GFR (Non-Af Amer) BUN/Creatinine Ratio (10-20) Glucose (70-99) mg/dl POC Lactic Acid Dew[place]ne 0.96 (0.90-1.70) mmol/L Calcium (8.5-10.1) mg/dl Magnesium (1.8-2.4) mg/dl Total Bilirubin (0.2-1) mg/dl AST (15-37) U/L ALT (12-78) U/L Alkaline Phosphatase (45-117) U/L Troponin I (0-0.045) ng/ml Total Protein (6.4-8.2) gm/dl Albumin (3.4-5.0) gm/dl Globulin (2.5-4.0) gm/dl Albumin/Globulin Ratio (0.9-2) Lipase (73-393) U/L Urine Color Yellow Urine Appearance Clear (Clear) Urine pH 7.5 (4.5-7.5) Ur Specific [place] 1.037 H (1.000-1.030) Urine Protein Negative (Negative) Urine Glucose (UA) Negative (Negative) Urine Ketones Trace H (Negative) Urine Blood Negative (Negative) Urine Nitrite Negative (Negative) Urine Bilirubin Negative (Negative) Urine Urobilinogen Negative (Negative) Ur Leukocyte Esterase Negative (Negative) 05/29/18 Range/Units 05:18 WBC (4.8-10.8) K/uL RBC (4.7-6.1) M/uL Hgb (14.0-18.0) g/dL Hct (42-52) % MCV (80-100) fL MCH (25-34) pg MCHC (32-36) g/dL RDW Std Deviation (36.4-46.3) fL RDW Coeff of [place] (11.5-14.5) % Plt Count (130-400) K/uL MPV (7.4-10.4) fL Immature Gran % (Auto) % Neut % (Auto) % Lymph % (Auto) % [place] % (Auto) % Eos % (Auto) % Baso % (Auto) % Immature Gran # (Auto) (0.00-0.02) K/uL Neut # (Auto) (1.4-6.5) K/uL Lymph # (Auto) (1.2-3.4) K/uL [place] # (Auto) (0.11-0.59) K/uL Eos # (Auto) (0-0.5) K/uL Baso # (Auto) (0-0.2) K/uL PT (9.0-12.0) Seconds INR (0.9-1.1) Sodium 140 (136-145) mmol/L Potassium 4.3 (3.5-5.1) mmol/L Chloride 107 (98-107) mmol/L Carbon Dioxide 30 (21-32) mmol/L Anion Gap 3.0 (3-11) BUN 22 H (7-18) mg/dl Creatinine 1.16 (0.6-1.4) mg/dl Est Cr Clr Drug Dosing 47.8 ml/min Est GFR ( Amer) 65.3 Est GFR (Non-Af Amer) 56.3 BUN/Creatinine Ratio 18.7 (10-20) Glucose 149 H (70-99) mg/dl POC Lactic Acid [place] (0.90-1.70) mmol/L Calcium 8.0 L (8.5-10.1) mg/dl Magnesium (1.8-2.4) mg/dl Total Bilirubin (0.2-1) mg/dl AST (15-37) U/L ALT (12-78) U/L Alkaline Phosphatase (45-117) U/L Troponin I (0-0.045) ng/ml Total Protein (6.4-8.2) gm/dl Albumin (3.4-5.0) gm/dl Globulin (2.5-4.0) gm/dl Albumin/Globulin Ratio (0.9-2) Lipase (73-393) U/L Urine Color Urine Appearance (Clear) Urine pH (4.5-7.5) Ur Specific [place] (1.000-1.030) Urine Protein (Negative) Urine Glucose (UA) (Negative) Urine Ketones (Negative) Urine Blood (Negative) Urine Nitrite (Negative) Urine Bilirubin (Negative) Urine Urobilinogen (Negative) Ur Leukocyte Esterase (Negative) Imaging Data Radiologist's Impression: Radiology results as stated below per my review and the radiologist's interpretation: CHEST , ABDOMEN, PELVIS CTA for AORTIC DISSECTION CT DOSE: 1415.46 mGy.cm HISTORY: epigastric pain into back TECHNIQUE: Multiaxial CT images of the chest, abdomen, and pelvis were performed both before and after the intravenous administration of contrast to evaluate the aorta. Maximal intensity projection images were also obtained. A dose lowering technique was utilized adhering to the principles of ALARA. COMPARISON STUDY: Abdomen and pelvis CT 02/12/2014. FINDINGS: Chest CTA: Noncontrast imaging through the chest shows no evidence for an intramural hematoma within the thoracic aorta. Normal caliber thoracic aorta with no evidence for dissection. No pleural or pericardial effusions. The central pulmonary arteries are patent. The heart is normal in size. No mediastinal or hilar lymphadenopathy. No acute fractures within the visualized osseous structures of the chest. No pneumothorax. The central airways are pa tent. Mild diffuse interstitial thickening demonstrating a peripheral distribution. This favors a chronic interstitial pneumonitis/fibrosis. Otherwise, no focal lung consolidations to suggest pneumonia. Abdomen and pelvis CTA: Normal caliber abdominal aorta and iliac arteries with no evidence for dissection. The left kidney is surgically absent. There are 2 right renal arteries. The dominant renal artery demonstrates a slightly beaded appearance suggestive of fibromuscular dysplasia. No aneurysms identified at this time. The inferior mesenteric and superior mesenteric arteries are patent. 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 The hepatic and splenic arteries are widely patent and normal in caliber. No pneumoperitoneum. No pneumatosis. No suspicious lytic or blastic o sseous lesions. Prior left inguinal hernia repair. A few small hypodense lesions within the right hepatic lobe measuring up to 9 mm. These are technically too small to characterize. The gallbladder, pancreas, and spleen are unremarkable. There is a low-density 13 mm right adrenal gland nodule. Multiple hypodense lesions within the right kidney. The majorities are subcentimeter in size and too small to characterize. Dominant lesion within the interpolar region measures 1.6 cm and likely represents a cyst. No right-sided hydronephrosis. There is also a 7 mm hypodense lesion within the lower pole the right kidney which does not clearly represent a simple cyst. However, this is stable compared to 2014 examination and therefore favors a complex cyst. No retroperitoneal lymphadenopathy. Multiple brachytherapy seeds within the prostate gland. The bladder is unremarkable. Colonic diverticulosis. No evidence for diverticulitis. Normal appendix. There are multiple loops of borderline dilated, fluid-filled small bowel. There are also multiple loops of mildly thickened small bowel within the right lower abdomen with adjacent mesenteric edema/fat stranding. There is a questionable transition point within the midabdomen as seen on image 322. Therefore, these findings may be secondary to a small bowel obstruction or a nonspecific enteritis. Given the mesenteric edema associated with the loops of small bowel to the right lower quadrant this raises the possibility of a closed loop obstruction with developing vascular compromise. IMPRESSION: 1. There are multiple loops of borderline dilated, fluid-filled small bowel. There are also multiple loops of mildly thickened small bowel within the right lower abdomen with adjacent mesenteric edema/fat stranding. There is a questionable transition point within the midabdomen. Therefore, these findings may be secondary to a small bowel obstruction or a nonspecific enteritis. Given the mesenteric edema associated with the loops of small bowel to the right lower quadrant, this raises the possibility of a closed loop obstruction with developi ng vascular compromise. However, there is no pneumatosis. Clinical correlation recommended to assess for an obstruction versus an infectious/inflammatory enteritis. 2. No evidence for an aortic dissection. 3. The superior and inferior mesenteric vessels appear patent. 4. Slightly deviated appearance to the dominant right renal artery suggestive of fibromuscular dysplasia. No aneurysm identified. 5. Chronic interstitial lung disease/fibrosis. 6. The left kidney is surgically absent. 7. 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 8. A 13 mm right adrenal gland nodule. This is likely benign given the long-term stability. Electronically signed by: Clark Rowland M.D. 05/28/2018 1:10 PM CHEST , ABDOMEN, PELVIS CTA for AORTIC DISSECTION CT DOSE: 1415.46 mGy.cm HISTORY: epigastric pain into back TECHNIQUE: Multiaxial CT images of the chest, abdomen, and pelvis were performed both before and after the intravenous administration of contrast to evaluate the aorta. Maximal intensity projection images were also obtained. A dose lowering technique was utilized adhering to the principles of ALARA. COMPARISON STUDY: Abdomen and pelvis CT 02/12/2014. FINDINGS: Chest CTA: Noncontrast imaging through the chest shows no evidence for an intramural hematoma within the thoracic aorta. Normal caliber thoracic aorta with no evidence for dissection. No pleural or pericardial effusions. The central pulmonary arteries are patent. The heart is normal in size. No mediastinal or hilar lymphadenopathy. No acute fractures within the visualized osseous structures of the chest. No pneumothorax. The central airways are patent. Mild diffuse interstitial thickening demonstrating a peripheral distribution. This favors a chronic interstitial pneumonitis/fibrosis. Otherwise, no focal lung consolidations to suggest pneumonia. Abdomen and pelvis CTA: Normal caliber abdominal aorta and iliac arteries with no evidence for dissection. The left kidney is surgically absent. There are 2 right renal arteries. The dominant renal artery demonstrates a slightly beaded appearance suggestive of fibromuscular dysplasia. No aneurysms identified at this time. The inferior mesenteric and superior mesenteric arteries are patent. 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 The hepatic and splenic arteries are widely patent and normal in caliber. No pneumoperitoneum. No pneumatosis. No suspicious lytic or blastic osseous lesions. Prior left inguinal hernia repair. A few small hypodense lesions within the right hepatic lobe measuring up to 9 mm. These are technically too small to characterize. The gallbladder, pancreas, and spleen are unremarkable. There is a low-density 13 mm right adrenal gland nodule. Multiple hypodense lesions within the right kidney. The majorities are subcentimeter in size and too small to characterize. Dominant lesion within the interpolar region measures 1.6 cm and likely represents a cyst. No right-sided hydronephrosis. There is also a 7 mm hypodense lesion within the lower pole the right kidney which does not clearly represent a simple cyst. However, this is stable compared to 2014 examination and therefore favors a complex cyst. No retroperitoneal lymphadenopathy. Multiple brachytherapy seeds within the prostate gland. The bladder is unremarkable. Colonic diverticulosis. No evidence for diverticulitis. Normal appendix. There are multiple loops of borderline dilated, fluid-filled small bowel. There are also multiple loops of mildly thickened small bowel within the right lower abdomen with adjacent mesenteric edema/fat stranding. There is a questionable transition point within the midabdomen as seen on image 322. Therefore, these findings may be secondary to a small bowel obstruction or a nonspecific enteritis. Given the mesenteric edema associated with the loops of small bowel to the right lower quadrant this raises the possibility of a closed loop obstruction with developing vascular compromise. IMPRESSION: 1. There are multiple loops of borderline dilated, fluid-filled small bowel. There are also multiple loops of mildly thickened small bowel within the right lower abdomen with adjacent mesenteric edema/fat stranding. There is a questionable transition point within the midabdomen. Therefore, these findings may be secondary to a small bowel obstruction or a nonspecific enteritis. Given the mesenteric edema associated with the loops of small bowel to the right lower quadrant, this raises the possibility of a closed loop obstruction with developing vascular compromise. However, there is no pneumatosis. Clinical correlation recommended to assess for an obstruction versus an infectious/inflammatory enteritis. 2. No evidence for an aortic dissection. 3. The superior and inferior mesenteric vessels appear patent. 4. Slightly deviated appearance to the dominant right renal artery suggestive of fibromuscular dysplasia. No aneurysm identified. 5. Chronic interstitial lung disease/fibrosis. 6. The left kidney is surgically absent. 7. 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 8. A 13 mm right adrenal gland nodule. This is likely benign given the long-term stability. Electronically signed by: Clark Rowland M.D. 05/28/2018 1:10 PM ECG Data Attestation: I personally reviewed and interpreted this ECG as follows: Indication: abdominal pain Rate (beats per minute): 61 Rhythm: sinus rhythm Findings: + other (normal axis, normal intervals, abhorrent baseline); no acute ischemic change Blood Pressure Blood Pressure Findings: Elevated blood pressure Blood Pressure Disposition: further management by hospitalist PATRICIA Narrative Patient here and comfortable appearing with complaints of sudden onset of abdominal pain radiating inferiorly as well as posteriorly. Given patient's advanced age and past medical history, patient sent for CT to rule out dissection as well as other acute intra-abdominal pathology. Patient here found to have possible bowel obstruction versus enteritis. Patient was given small amounts of fentanyl for his abdominal pain as well as Zofran for the nausea and was kept on IV fluids as well as n.p.o. Given the regular radiology of a possible closed loop obstruction, I did discuss case with general surgery. Patient's clinical exam not consistent with a closed loop obstruction or evolving ischemia patient's lactic acid reassuring. Surgery agreed with conservative management at this time. Did not feel the patient required an NG tube as he has not had vomiting here. Patient was made aware of all results and was in agreement with plan. Case discussed with hospitalist for additional evaluation and management. Impression & Plan Abdominal pain, SBO (small bowel obstruction), Hypertension Discharge Plan Visit Data *Final* Discharge Date/Time: 05/28/18 17:05 Chief Complaint: Abdominal Pain Stated Complaint: SEVERE ABDOMINAL PAIN ED Provider: Caren Reed Discharge Problem: Abdominal pain, SBO (small bowel obstruction), Hypertension Patient Disposition: Admitted As Inpatient Discharge Instructions Interventions: ED Discharge Assessment Last Done: 05/28/18 17:05 Discharge Problem: Abdominal pain Qualifiers: Abdominal location: upper abdomen, unspecified Qualified Code(s): R10.10 - Upper abdominal pain, unspecified Hypertension Qualifiers: Hypertension type: essential hypertension Qualified Code(s): I10 - Essential (primary) hypertension The scribe's documentation has been prepared under my direction and personally reviewed by me in its entirety. I confirm that the note above accurately reflects all work, treatment, procedures, and medical decision making performed by me.
--- NOTE | 2018-05-28 15:27 | History & Physical Report ---
Date of Service May 28, 2018 Assessment & Plan (1) Abdominal pain: Acute onset just several hours prior to admission. CT abd/pelvis with abnormal small bowel -- infectious enteritis? ischemic? early partial SBO? other? General surgery consult for their opinion. Strict NPO. Pain meds. Copious IV fluids. Will repeat a 2-view abdominal x-ray in am to re-evaluate the bowels. Defer on NG tube unless he develops severe emesis, etc. Present on Admission?: Yes (2) Abnormal CT of the abdomen: see discussion above Present on Admission?: Yes (3) Neuropathy involving both lower extremities: chronic, idiopathic. does not take anything for this at home. Present on Admission?: Yes (4) Hypertension: Hold VERN inhibitor for now. Present on Admission?: Yes (5) BPH (benign prostatic hyperplasia): Cont flomax. no issues. Present on Admission?: Yes (6) DVT prophylaxis: heparin 5000 BID. IV fluids. updated at bedside. appreciate gen surg consultation. total time spent on admission activities - 60 minutes. History of Present Illness Chief Complaint: abdominal pain Primary Care Provider: Rayshawn Jorge MD 88yo male with BPH & HTN who presents with central abdominal pain starting acutely at 930 this am. He had eaten breakfast 1.5 hours prior. The pain has been sharp in quality and has been constant since beginning at home. No emesis but some nausea. Had a large, normal bowel movement this morning just before the pain started. Some of the pain had radiated to the back earlier this am; this has resolved. Denies any post-prandial pain over the last few weeks. He has had cold chills. No fever. As the encounter went on he stated that the pain peaks then improves, and repeats in that fashion. Allergies Allergy/AdvReac Type Severity Reaction Status Date / Time No Known Allergies Allergy Verified 05/28/18 11:07 Home Medications Home Medications Medication Instructions Recorded Confirmed Type fluticasone propionate 50 1 sprays INTNAS DAILY PRN 04/01/18 05/28/18 History mcg/actuation nasal spray,suspension lisinopril 2.5 mg tablet 2.5 mg PO DAILY 04/01/18 05/28/18 History sennosides 8.6 mg tablet 8.6 mg PO DAILY PRN 01/25/19 03/23/19 History tamsulosin 0.4 mg capsule 0.4 mg PO DAILY 04/01/18 05/28/18 History Past Med/Surg History Medical History H/O prostate cancer (Resolved) treated with radiation seeds in 2000 Osteoarthritis, knee (Chronic) Impaired renal function (Chronic) Hypertension (Chronic) Surgical History History of kidney removal (Chronic) 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 Feels Safe at Home: Yes Safety Concerns: Feels Safe At This Time Smoking Status: Never smoker Hx Alcohol Use: Yes Hx Substance Use: No Review of Systems Constitutional: + chills and + weight gain; no fever Eyes: no worsening vision Ear, Nose, Mouth, Throat: no nasal congestion, no sore throat and no dysphagia Respiratory: no cough and no dyspnea Cardiovascular: no chest pain Gastrointestinal: + abdominal pain and + nausea; no vomiting, no constipation, no diarrhea/loose stools and no blood in stools Genitourinary (Male): + nocturia; no dysuria Musculoskeletal: + back pain (today only) Integumentary: no rash Neurologic: + numbness (legs ) and + radiating pain (lumbar spinal stenosis) Psychiatric: no depression and no anxiety no diabetes Physical Exam Vital Signs (Past 24 Hours): Last Vital Signs Temp 36.4 C L 05/28/18 10:49 Pulse 78 05/28/18 15:01 Resp 18 05/28/18 15:01 BP 142/83 H 05/28/18 15:01 Pulse Ox 95 05/28/18 15:01 Constitutional: well developed, well nourished, + acute distress (due to abdominal pain) and average body habitus; not ill appearing and no altered mental status Eyes: PERRL ENMT: external ear and nose normal, oropharynx normal Neck: trachea midline, no thyromegaly Respiratory: normal respiratory effort, lungs clear to auscultation Cardiovascular: Rate/Rhythm: regular rate and regular rhythm Heart Sounds: normal S1 and normal S2; no murmur Vessels: posterior tibial pulses present and dorsalis pedis pulses present; no JVD Extremities: no pedal edema Gastrointestinal (Abdomen): Inspection/Auscultation: + abdomen distended; + abnormal bowel sounds (mildly hyperactive/high-pitched) Percussion/Palpation: + abdomen tender (epigastric region); no hepatosplenomegaly, no hernia and no abdominal mass Musculoskeletal: no cyanosis or clubbing, extremities motor strength 5/5 Skin: no rashes, warm and dry Neurologic: deep tendon reflexes 2+ bilaterally; no focal motor deficits Psychiatric: Orientation: alert and oriented x 3 Lymphatic: no cervical lymphadenopathy Results & Data Laboratory Results Laboratory Results - last 24 hr 05/28/18 05/28/18 05/28/18 11:15 11:15 11:15 WBC 6.17 RBC 4.77 Hgb 15.4 Hct 45.0 MCV 94.3 MCH 32.3 MCHC 34.2 RDW Std Deviation 44.0 RDW Coeff of [place] 12.8 Plt Count 128 L MPV 11.5 H Immature Gran % (Auto) 0.2 Neut % (Auto) 53.1 Lymph % (Auto) 35.0 [place] % (Auto) 9.6 Eos % (Auto) 1.9 Baso % (Auto) 0.2 Immature Gran # (Auto) 0.01 Neut # (Auto) 3.28 Lymph # (Auto) 2.16 [place] # (Auto) 0.59 Eos # (Auto) 0.12 Baso # (Auto) 0.01 PT 10.6 INR 1.0 Sodium 137 Potassium 4.1 Chloride 104 Carbon Dioxide 30 Anion Gap 3.0 BUN 19 H Creatinine 1.21 Est Cr Clr Drug Dosing 45.8 Est GFR ( Amer) 62.0 Est GFR (Non-Af Amer) 53.5 BUN/Creatinine Ratio 15.5 Glucose 94 POC Lactic Acid Dewayne Calcium 8.4 L Magnesium 2.1 Total Bilirubin 0.8 AST 25 ALT 24 Alkaline Phosphatase 84 Troponin I < 0.015 Total Protein 7.1 Albumin 3.6 Globulin 3.5 Albumin/Globulin Ratio 1.0 Lipase 88 Urine Color Urine Appearance Urine pH Ur Specific [place] Urine Protein Urine Glucose (UA) Urine Ketones Urine Blood Urine Nitrite Urine Bilirubin Urine Urobilinogen Ur Leukocyte Esterase 05/28/18 05/28/18 11:37 13:30 WBC RBC Hgb Hct MCV MCH MCHC RDW Std Deviation RDW Coeff of [place] Plt Count MPV Immature Gran % (Auto) Neut % (Auto) Lymph % (Auto) [place] % (Auto) Eos % (Auto) Baso % (Auto) Immature Gran # (Auto) Neut # (Auto) Lymph # (Auto) [place] # (Auto) Eos # (Auto) Baso # (Auto) PT INR Sodium Potassium Chloride Carbon Dioxide Anion Gap BUN Creatinine Est Cr Clr Drug Dosing Est GFR ( Amer) Est GFR (Non-Af Amer) BUN/Creatinine Ratio Glucose POC Lactic Acid Dewayne 0.96 Calcium Magnesium Total Bilirubin AST ALT Alkaline Phosphatase Troponin I Total Protein Albumin Globulin Albumin/Globulin Ratio Lipase Urine Color Yellow Urine Appearance Clear Urine pH 7.5 Ur Specific [place] 1.037 H Urine Protein Negative Urine Glucose (UA) Negative Urine Ketones Trace H Urine Blood Negative Urine Nitrite Negative Urine Bilirubin Negative Urine Urobilinogen Negative Ur Leukocyte Esterase Negative Diagnostic Findings CTA dissection protocol - IMPRESSION: 1. There are multiple loops of borderline dilated, fluid-filled small bowel. There are also multiple loops of mildly thickened small bowel within the right lower abdomen with adjacent mesenteric edema/fat stranding. There is a questionable transition point within the midabdomen. Therefore, these findings may be secondary to a small bowel obstruction or a nonspecific enteritis. Given the mesenteric edema associated with the loops of small bowel to the right lower quadrant, this raises the possibility of a closed loop obstruction with developing vascular compromise. However, there is no pneumatosis. Clinical correlation recommended to assess for an obstruction versus an infectious/inflammatory enteritis. 2. No evidence for an aortic dissection. 3. The superior and inferior mesenteric vessels appear patent. 4. Slightly deviated appearance to the dominant right renal artery suggestive of fibromuscular dysplasia. No aneurysm identified. 5. Chronic interstitial lung disease/fibrosis. 6. The left kidney is surgically absent. 7. 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 8. A 13 mm right adrenal gland nodule. This is likely benign given the long-term stability. ekg - my reading - NSR, early repolarization lateral leads (j-point elevation) Code Status & VTE Plan Code Status full code level 1 VTE Prophylaxis Plan VTE Prophylaxis will be ordered: Yes (1) Abdominal pain Abdominal location: upper abdomen, unspecified Qualified Code(s): R10.10 - Upper abdominal pain, unspecified (2) Hypertension Hypertension type: essential hypertension Qualified Code(s): I10 - Essential (primary) hypertension (3) BPH (benign prostatic hyperplasia) Lower urinary tract symptom presence: symptoms absent Qualified Code(s): N40.0 - Benign prostatic hyperplasia without lower urinary tract symptoms
[2018-05-28] MEDS ORDERED: SODIUM CHLORIDE 0.9% 1000ML 1,000 ML IV ONE (15:43)
--- NOTE | 2018-05-28 17:35 | Consultation ---
Date of Consultation May 28, 2018 Assessment & Plan (1) Abdominal pain: 88 yr old man with acute onset of abdominal pain, nausea, and increased bloating. Imaging and exam are very suggestive of evolving small bowel obstruction. There is a question as to a closed loop obstruction with an area of mesenteric edema noted in the right lower quadrant on CT. However, on exam, he currently has no signs of ischemia. His abdomen is soft, there is no guarding, there is no rebound. He does have hyperactive bowel tones consistent with small bowel obstruction. His white blood cell count is normal as is his lactate. We discussed that there is no current strong indication for urgent surgical intervention. We reviewed that most small bowel obstructions are secondary to adhesive disease and most will resolve nonoperatively. We discussed initial management to include pain control, bowel rest, and IV fluid hydration. We reviewed that if his symptoms worsen or if he develops signs of ischemia that he would require an operation to help clear up the bowel obstruction. We also discussed that operating for bowel obstruction does not guarantee that future bowel obstructions do not happen as scar tissue is the most common reason for bowel blockages. We discussed the possibility of nasogastric tube placement should he develop vomiting. He would prefer to avoid a NG tube if possible. (2) Abnormal CT of the abdomen: see above. History of Present Illness Reason for Consultation: abdominal pain Requesting Physician: Tricia Machuca History of Present Illness Mr. Jama is an 88-year-old man who presents to the emergency room complaining of abdominal pain that started about an hour and a half after eating this morning. This came on suddenly. It was located throughout his abdomen, centralized around the epigastric area and radiating to his back. It was of moderate to intense severity, sharp stabbing, coming in waves of increasing intensity. He started to develop some nausea. He did not have any vomiting. He thus presented to the emergency room for further evaluation. His last bowel movement was this morning and was formed. He has not had a history of small bowel blockages in the past. He does not note any fevers or chills. While in the emergency room, he received 25 MCG of fentanyl. This did nothing for the pain but did make the room seem like it was swimming around. He notes that the pain is coming on in a cresting wave again. This is located in his mid abdomen. He has never had any similar episodes of pain. He does not note any flatus since this morning. He is feeling increasingly bloated. He also also feeling more belching and a feeling of acid reflux in the back of his throat. He has had his left kidney removed for kidney cancer. He has had his left groin repaired on [address] Rahman for recurrent left inguinal john ias. Allergies Allergy/AdvReac Type Severity Reaction Status Date / Time No Known Allergies Allergy Verified 05/28/18 11:07 Home Medications Home Medications Medication Instructions Recorded Confirmed Type fluticasone propionate 50 1 sprays INTNAS DAILY PRN 04/01/18 05/28/18 History mcg/actuation nasal spray,suspension lisinopril 2.5 mg tablet 2.5 mg PO DAILY 04/01/18 05/28/18 History sennosides 8.6 mg tablet 8.6 mg PO DAILY PRN 04/01/18 05/28/18 History tamsulosin 0.4 mg capsule 0.4 mg PO DAILY 04/01/18 05/28/18 History Patient History Medical History H/O prostate cancer (Resolved) treated with radiation seeds in 2000 Osteoarthritis, knee (Chronic) Impaired renal function (Chronic) Hypertension (Chronic) Surgical History History of kidney removal (Chronic) 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 Wears glasses. Physical Exam Vital Signs (Past 24 Hours): Last Vital Signs Temp 36.4 C L 05/28/18 10:49 Pulse 77 05/28/18 17:00 Resp 13 05/28/18 17:00 BP 137/81 05/28/18 16:31 Pulse Ox 96 05/28/18 16:31 Constitutional: WD/WN, vitals as above Respiratory: normal respiratory effort, lungs clear to auscultation Cardiovascular: RRR, no murmur, no edema Gastrointestinal (Abdomen): Inspection/Auscultation: + hyperactive bowel sounds Percussion/Palpation: + abdomen tender (mild, diffuse) and abdomen soft; no guarding, abdomen not rigid, no hernia and no abdominal mass Musculoskeletal: no cyanosis or clubbing, extremities motor strength 5/5 Neurologic: PERRL, EOMI, accommodation nl, no face palsy, no dysarthria Results & Data Laboratory Results WBC ct normal. Lactate normal. Diagnostic Findings CT scan abd/ pelvis reviewed: IMPRESSION: 1. There are multiple loops of borderline dilated, fluid-filled small bowel. There are also multiple loops of mildly thickened small bowel within the right lower abdomen with adjacent mesenteric edema/fat stranding. There is a questionable transition point within the midabdomen. Therefore, these findings may be secondary to a small bowel obstruction or a nonspecific enteritis. Given the mesenteric edema associated with the loops of small bowel to the right lower quadrant, this raises the possibility of a closed loop obstruction with developing vascular compromise. However, there is no pneumatosis. Clinical correlation recommended to assess for an obstruction versus an infectious/inflammatory enteritis. 2. No evidence for an aortic dissection. 3. The superior and inferior mesenteric vessels appear patent. 4. Slightly deviated appearance to the dominant right renal artery suggestive of fibromuscular dysplasia. No aneurysm identified. 5. Chronic interstitial lung disease/fibrosis. 6. The left kidney is surgically absent. 7. 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 8. A 13 mm right adrenal gland nodule. This is likely benign given the long-term stability. (1) Abdominal pain Abdominal location: upper abdomen, unspecified Qualified Code(s): R10.10 - Upper abdominal pain, unspecified
[2018-05-28] MEDS ORDERED: MoRPHine SULFATE 2 MG/ML CARP IV PRN (18:21)
[2018-05-28] MEDS ORDERED: ONDANSETRON INJ 2 MG/ML 2 ML VIAL IV PRN (18:21)
[2018-05-28] MEDS ORDERED: FLUTICASONE PROPIONATE NA SPR 16 GM BTL PRN (18:21)
[2018-05-28] MEDS ORDERED: MoRPHine SULFATE 2 MG/ML CARP ONE (18:32)
[2018-05-28] MEDS ORDERED: DiphenhydrAMINE HCL 50 MG/ML VIAL IV STA (20:25)
[2018-05-28] MEDS: D5NSS + 20MEQ KCL 20 MEQ/1,000 ML BAG IV SCH (20:26)
[2018-05-28] MEDS: HEPARIN SOD 5,000 UNIT/0.5 ML VIAL SQ SCH (21:06)
[2018-05-28] MEDS: ACETAMINOPHEN 325 MG TAB PO SCH (21:06)
[2018-05-28] MEDS ORDERED: ALUMINUM/MAGNESIUM SUSP 30 ML UDC PO STA (23:42)
[2018-05-29] MEDS: ACETAMINOPHEN 325 MG TAB PO SCH ×4 (03:53→22:14)
[2018-05-29 05:29] LABS: Basophils # (auto) 0.01 K/uL (0-0.2); Basophils % (auto) 0.1 %; Immature Granulocytes # (auto) 0.02 K/uL (0.00-0.02); Immature Granulocytes % (auto) 0.2 %; Lymphocytes # (auto) 1.18 K/uL (1.2-3.4); Lymphocytes % (auto) 13.5 %; Mean Corpuscular Hgb Conc 34.1 g/dL (32-36); Mean Corpuscular Volume 94.2 fL (80-100); Mean Platelet Volume 11.2 fL (7.4-10.4); Monocytes # (auto) 0.77 K/uL (0.11-0.59); Monocytes % (auto) 8.8 %; Neutrophils # (auto) 6.73 K/uL (1.4-6.5); Neutrophils % (auto) 77.4 %; Platelet Count 132 K/uL (130-400); RDW Coefficient of Variation 12.9 % (11.5-14.5); RDW Standard Deviation 44.2 fL (36.4-46.3); Red Blood Count 4.67 M/uL (4.7-6.1); White Blood Count 8.71 K/uL (4.8-10.8)
[2018-05-29 05:53] LABS: BUN Creatinine Ratio 18.7 (10-20); Creatinine Clr Calc Pharmacy 47.8 ml/min; Est GFR (African American) 65.3; Est GFR (Non-African American) 56.3; Potassium 4.3 mmol/L (3.5-5.1)
[2018-05-29] MEDS: D5NSS + 20MEQ KCL 20 MEQ/1,000 ML BAG IV SCH ×2 (05:58→15:53)
--- NOTE | 2018-05-29 09:27 | XRay Report ---
PA CHEST RADIOGRAPH AND UPRIGHT AND SUPINE AP RADIOGRAPHS OF THE ABDOMEN CLINICAL HISTORY: abd pain, abnormal CT abd/pelvis COMPARISON STUDY: CTA of the abdomen and pelvis May 28, 2018. FINDINGS: Lung volumes are normal. There is no pneumothorax or pleural effusion. There is no evidenc e for pulmonary edema. Cardiac mediastinal silhouette is unremarkable. There is no free air. There is moderate dilatation of numerous small bowel loops. Small bowel dilatation has increased since exam o f May 28, 2018. Multiple small bowel air-fluid levels are noted on upright projections. Abdominal s urgical clips are noted. There is contrast within the bladder from recent contrast-enhanced CT. IMPRESSION: 1. Increasing small bowel dilatation which suggests a progressive small bowel obstruction. 2. No free air. 3. No acute cardiopulmonary findings. Electronically signed by: Yayo Ambriz M.D. 05/29/2018 9:24 AM
[2018-05-29] MEDS: TAMSULOSIN HCL 0.4 MG CAP PO SCH (09:49)
[2018-05-29] MEDS: HEPARIN SOD 5,000 UNIT/0.5 ML VIAL SQ SCH ×2 (09:51→22:12)
--- NOTE | 2018-05-29 09:54 | Surgery Progress Note ---
Date of Service May 29, 2018 Assessment & Plan (1) Abdominal pain: 88 yr old man with evolving small bowel obstruction. Xray done today shows progressive bowel dilation. Still no sign of ischemia on exam (which is less tender but more distended than yesterday). Discussed ng placement as I think this will give him the best chance at resolution without operation. Explained this should also help with the reflux which is likely present due to backup of fluid in the stomach. He is agreeable. (2) Abnormal CT of the abdomen: see above. Subjective Pain is somewhat better - no further sharp/ intense pain but he is noticing more bloating, reflux. Still with mild to moderate pain now more localized in upper abdomen. Feels he is able to push on his abdomen harder than yesterday with less discomfort. No bowel movement or flatus yet. Review of Systems All systems reviewed & are unremarkable except as noted in HPI & below Physical Exam Vital Signs (Past 24 Hours): Last Vital Signs Temp 36.8 C 05/29/18 07:02 Pulse 82 05/29/18 07:02 Resp 16 05/29/18 07:02 BP 128/78 05/29/18 07:02 Pulse Ox 93 05/29/18 07:02 Constitutional: WD/WN, vitals as above Respiratory: normal respiratory effort, lungs clear to auscultation Cardiovascular: RRR, no murmur, no edema Gastrointestinal (Abdomen): Inspection/Auscultation: + abdomen distended (more distended and tympanitic in upper abdomen) and + hypoactive bowel sounds Percussion/Palpation: + abdomen tender (less than yesterday) and abdomen soft; no guarding, abdomen not rigid, no hernia and no abdominal mass Musculoskeletal: no cyanosis or clubbing, extremities motor strength 5/5 (1) Abdominal pain Abdominal location: upper abdomen, unspecified Qualified Code(s): R10.10 - Upper abdominal pain, unspecified
[2018-05-29] MEDS ORDERED: CHLORASEPTIC 1.4% SOLN 180 ML BTL MT PRN (14:25)
--- NOTE | 2018-05-29 15:53 | Hospitalist Progress Note ---
Date of Service May 29, 2018 Assessment & Plan (1) Small bowel obstruction: - F/U CXR/Abd Pelvis XR - supports developing SBO; CT on admission with concern for closed loop obstruction with developing compromise, mesenteric edema/fat stranding with possible transition point in midabdomen, no pneumatosis - discussed with radiology this AM - NGT was placed today for decompression; no leukocytosis, no lactic acidosis - IVF at 100 mL/hr; Pain management with morphine; reflux relief with Ranitidine 50 mg IV Q8H - Continue NPO status and will advance pending clinical improvement - Gen Surg following - discussed with Dr. 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 - reports having low back discomfort; no loss of bowel/bladder, saddle paresthesias, weakness - No medications currently Present on Admission?: Yes (3) Hypertension: - STABLE; Had some low readings sporadically - will hold Lisinopril 2.5 mg daily for now Present on Admission?: Yes (4) BPH (benign prostatic hyperplasia): - STABLE - H/O prostate CA with seeds placed (remission) - Tamsulosin 0.4 mg daily Present on Admission?: Yes (5) DVT prophylaxis: - Heparin Disposition: Await clinical improvement Subjective Reports he is doing ok but having a lot more indigestion today but no emesis so far Reports pain is doing a lot better but just indigestion XR shows progression of SBO Verbalizes no other complaints at this time Constitutional: no fever and no chills Ear, Nose, Mouth, Throat: no sore throat and no dysphagia Respiratory: no cough and no dyspnea Cardiovascular: no chest pain, no palpitations and no edema Gastrointestinal: + abdominal pain (improving), + bloating and + nausea; no vomiting, no constipation, no diarrhea/loose stools and no blood in stools Genitourinary (Male): no dysuria Musculoskeletal: + back pain (low back pain - chronic) Integumentary: no rash Physical Exam Vital Signs (Past 24 Hours): Last Vital Signs Temp 36.9 C 05/29/18 15:26 Pulse 88 05/29/18 15:26 Resp 17 05/29/18 15:26 BP 137/74 05/29/18 15:26 Pulse Ox 92 05/29/18 15:26 Constitutional: WD/WN, vitals as above average body habitus; no acute distress and not ill appearing Eyes: + anicteric sclerae ENMT: Ears: no hearing impairment Neck: normal visual inspection and trachea midline Respiratory: normal respiratory effort, lungs clear to auscultation Cardiovascular: RRR, no murmur, no edema Gastrointestinal (Abdomen): Inspection/Auscultation: + abdomen distended (largely of epigastric/upper abdomen), + hyperactive bowel sounds and + hypoactive bowel sounds; + abnormal bowel sounds (hypoactive) Percussion/Palpation: + abdomen tender (improving) and abdomen soft; no guarding, abdomen not rigid and no hernia Musculoskeletal: Head/Neck/Chest: normocephalic, head atraumatic and neck supple Extremities: no cyanosis and no clubbing Skin: no rashes, warm and dry Neurologic: moves all extremities; no focal motor deficits Psychiatric: A+Ox3, euthymic affect Lymphatic: no cervical lymphadenopathy (1) BPH (benign prostatic hyperplasia) Lower urinary tract symptom presence: symptoms absent Qualified Code(s): N40.0 - Benign prostatic hyperplasia without lower urinary tract symptoms (2) Hypertension Hypertension type: essential hypertension Qualified Code(s): I10 - Essential (primary) hypertension
[2018-05-29] MEDS ORDERED: SIMETHICONE 40 MG/0.6 ML 30ML PO STA (20:02)
[2018-05-29] MEDS ORDERED: DiphenhydrAMINE HCL 50 MG/ML VIAL IV STA (22:28)
[2018-05-30] MEDS: D5NSS + 20MEQ KCL 20 MEQ/1,000 ML BAG IV SCH ×3 (01:46→23:00)
[2018-05-30] MEDS: ACETAMINOPHEN 325 MG TAB PO SCH ×4 (02:49→20:58)
[2018-05-30] MEDS: HEPARIN SOD 5,000 UNIT/0.5 ML VIAL SQ SCH ×2 (08:37→20:58)
[2018-05-30] MEDS: TAMSULOSIN HCL 0.4 MG CAP PO SCH (08:41)
--- NOTE | 2018-05-30 11:57 | Surgery Progress Note ---
Date of Service May 30, 2018 Assessment & Plan (1) SBO (small bowel obstruction): Small bowel obstruction resolving Peristalsis has returned and is passing flatus Has not had a bowel movement so would leave NG tube but would clamp it and then unclamped for return of distention or nausea Would continue n.p.o. for now Subjective Denies abdominal pain Denies nausea and vomiting And she has had 1350 cc out since it was placed Has begun to pass flatus No bowel movement as yet Physical Exam Vital Signs (Past 24 Hours): Last Vital Signs Temp 36.9 C 05/30/18 08:53 Pulse 80 05/30/18 08:53 Resp 20 05/30/18 08:53 BP 124/70 05/30/18 08:53 Pulse Ox 94 05/30/18 08:53 Gastrointestinal (Abdomen): Inspection/Auscultation: abdomen not distended Percussion/Palpation: abdomen soft; abdomen nontender
--- NOTE | 2018-05-30 21:46 | Hospitalist Progress Note ---
Date of Service May 30, 2018 Assessment & Plan (1) Small bowel obstruction: Abdominal x-ray- supports developing SBO; CT on admission with concern for closed loop obstruction with developing compromise, mesenteric edema/fat stranding with possible transition point in midabdomen, no pneumatosis Has a history of 3 ventral hernia repairs as well as a left nephrectomy-could be from adhesive disease - NGT was placed for decompression; no leukocytosis, no lactic acidosis -Now passing flatus and a small bowel movement, NG tube has been clamped since this morning -Can likely DC NG tube in the morning-defer to general surgery-appreciate management -Continue IVF at 100 mL/hr; Pain management with morphine as needed; reflux relief with Ranitidine 50 mg IV Q8H - Continue NPO status and will advance pending clinical improvement (2) 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 No nausea, is having flatus and had a "walnut sized BM." NG tube has been clamped since this morning. He has never had a bowel obstruction before. He had a lot of questions about his diagnosis. Review of Systems All systems reviewed & are unremarkable except as noted in HPI & below Physical Exam Vital Signs (Past 24 Hours): Last Vital Signs Temp 36.7 C 05/30/18 15:06 Pulse 82 05/30/18 15:06 Resp 18 05/30/18 15:06 BP 147/76 H 05/30/18 15:06 Pulse Ox 92 05/30/18 15:06 Constitutional: WD/WN, vitals as above Eyes: PERRL, conjunctivae normal, anicteric sclerae ENMT: external ear and nose normal, oropharynx normal Neck: trachea midline, no thyromegaly Respiratory: normal respiratory effort, lungs clear to auscultation Cardiovascular: RRR, no murmur, no edema Gastrointestinal (Abdomen): normal bowel sounds, soft, nontender, no hepatosplenomegaly Musculoskeletal: Extremities: extremities normal to inspection; no cyanosis and no clubbing Skin: no rashes, warm and dry Neurologic: moves all extremities and awake; no focal motor deficits Psychiatric: A+Ox3, euthymic affect Results & Data Laboratory Results No labs (1) BPH (benign prostatic hyperplasia) Lower urinary tract symptom presence: symptoms absent Qualified Code(s): N40.0 - Benign prostatic hyperplasia without lower urinary tract symptoms (2) Hypertension Hypertension type: essential hypertension Qualified Code(s): I10 - Essential (primary) hypertension
[2018-05-31] MEDS: ACETAMINOPHEN 325 MG TAB PO SCH ×4 (02:55→20:39)
[2018-05-31 08:15] LABS: Basophils # (auto) 0.02 K/uL (0-0.2); Basophils % (auto) 0.3 %; Eosinophils # (auto) 0.14 K/uL (0-0.5); Eosinophils % (auto) 2.2 %; Hematocrit (blood only) 42.6 % (42-52); Immature Granulocytes # (auto) 0.01 K/uL (0.00-0.02); Immature Granulocytes % (auto) 0.2 %; Lymphocytes % (auto) 26.2 %; Mean Corpuscular Hgb Conc 32.9 g/dL (32-36); Mean Corpuscular Volume 96.2 fL (80-100); Mean Platelet Volume 11.3 fL (7.4-10.4); Monocytes # (auto) 0.81 K/uL (0.11-0.59); Monocytes % (auto) 12.5 %; Neutrophils # (auto) 3.81 K/uL (1.4-6.5); Neutrophils % (auto) 58.6 %; Platelet Count 110 K/uL (130-400); RDW Standard Deviation 46.1 fL (36.4-46.3); Red Blood Count 4.43 M/uL (4.7-6.1); White Blood Count 6.49 K/uL (4.8-10.8)
[2018-05-31] MEDS: D5NSS + 20MEQ KCL 20 MEQ/1,000 ML BAG IV SCH (08:48)
[2018-05-31] MEDS: TAMSULOSIN HCL 0.4 MG CAP PO SCH ×2 (08:49→08:56)
[2018-05-31] MEDS: HEPARIN SOD 5,000 UNIT/0.5 ML VIAL SQ SCH ×2 (08:51→20:39)
[2018-05-31 08:54] LABS: BUN Creatinine Ratio 11.1 (10-20); Creatinine Clr Calc Pharmacy 55.4 ml/min; Est GFR (African American) 78.1; Est GFR (Non-African American) 67.4
--- NOTE | 2018-05-31 11:12 | Surgery Progress Note ---
Date of Service May 31, 2018 Assessment & Plan (1) SBO (small bowel obstruction): Small bowel obstruction resolving Peristalsis has returned and is passing flatus, small bowel movement this am NGT clamped since yesterday, residual checked this morning on my exam, no output Plan: Discontinue NGT Start clear liquids, advised to go slow continue OOB to chair and ambulate Continue medical management Subjective NGT is very uncomfortable no abdominal pain no n/v passing a lot of gas this morning, three small pellets of stool this morning NGT has been clamped since yesterday and no increasing pain, n/v Physical Exam Vital Signs (Past 24 Hours): Last Vital Signs Temp 36.6 C 05/31/18 07:00 Pulse 82 05/31/18 07:00 Resp 16 05/31/18 07:00 BP 117/74 05/31/18 07:00 Pulse Ox 94 05/31/18 07:00 Constitutional: WD/WN, vitals as above no acute distress and not ill appearing Respiratory: normal respiratory effort; no respiratory distress Gastrointestinal (Abdomen): Inspection/Auscultation: normal bowel sounds; abdomen not distended Percussion/Palpation: abdomen soft; abdomen nontender, no guarding and abdomen not rigid NGT with dark brown/red output in tube however when hooked back up to suction no residual output Skin: no rashes, warm and dry Psychiatric: A+Ox3, euthymic affect Results & Data Laboratory Results 05/31/18 05/31/18 Range/Units 08:01 08:01 WBC 6.49 (4.8-10.8) K/uL RBC 4.43 L (4.7-6.1) M/uL Hgb 14.0 (14.0-18.0) g/dL Hct 42.6 (42-52) % MCV 96.2 (80-100) fL MCH 31.6 (25-34) pg MCHC 32.9 (32-36) g/dL RDW Std Deviation 46.1 (36.4-46.3) fL RDW Coeff of [place] 13.0 (11.5-14.5) % Plt Count 110 L (130-400) K/uL MPV 11.3 H (7.4-10.4) fL Immature Gran % (Auto) 0.2 % Neut % (Auto) 58.6 % Lymph % (Auto) 26.2 % [place] % (Auto) 12.5 % Eos % (Auto) 2.2 % Baso % (Auto) 0.3 % Immature Gran # (Auto) 0.01 (0.00-0.02) K/uL Neut # (Auto) 3.81 (1.4-6.5) K/uL Lymph # (Auto) 1.70 (1.2-3.4) K/uL [place] # (Auto) 0.81 H (0.11-0.59) K/uL Eos # (Auto) 0.14 (0-0.5) K/uL Baso # (Auto) 0.02 (0-0.2) K/uL Sodium 143 (136-145) mmol/L Potassium 4.0 (3.5-5.1) mmol/L Chloride 112 H (98-107) mmol/L Carbon Dioxide 27 (21-32) mmol/L Anion Gap 4.0 (3-11) BUN 11 (7-18) mg/dl Creatinine 1.00 (0.6-1.4) mg/dl Est Cr Clr Drug Dosing 55.4 ml/min Est GFR ( Amer) 78.1 Est GFR (Non-Af Amer) 67.4 BUN/Creatinine Ratio 11.1 (10-20) Glucose 101 H (70-99) mg/dl Calcium 8.0 L (8.5-10.1) mg/dl
--- NOTE | 2018-05-31 13:46 | Hospitalist Progress Note ---
Date of Service May 31, 2018 Assessment & Plan (1) Small bowel obstruction: Abdominal x-ray- supports developing SBO; CT on admission with concern for closed loop obstruction with developing compromise, mesenteric edema/fat stranding with possible transition point in midabdomen, no pneumatosis Has a history of 3 ventral hernia repairs as well as a left nephrectomy-could be from adhesive disease - NGT was placed for decompression; no leukocytosis, no lactic acidosis -Now passing flatus and has had several small bowel movements, NG tube has been removed -adv diet to clears this AM, then full liquids in AM and possibly soft food later today with possible dc tomorrow evening if still doing well -continue reflux relief with Ranitidine 50 mg IV Q8H -dc IVFs -no need for labs in AM (2) 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 - reports having low back discomfort; no loss of bowel/bladder, saddle paresthesias, weakness - No medications currently (3) Hypertension: - STABLE; Had some low readings sporadically - will continue to hold Lisinopril 2.5 mg daily for now (4) BPH (benign prostatic hyperplasia): - STABLE - H/O prostate CA with seeds placed (remission) - Tamsulosin 0.4 mg daily (5) History of kidney cancer: Status post left nephrectomy (6) DVT prophylaxis: - Heparin SQ Disposition: much improved, possible dc to home tomrorow after advanced diet to soft food and tolerating Subjective doing great, passing flatus, had "3 walnuts" of stool today, no abd pain at all, no nausea. He just ate clears for lunch and had no problems. NGT out since this AM and feels so much better with that, still some sore throat. Review of Systems All systems reviewed & are unremarkable except as noted in HPI & below (no CP or SOB) Physical Exam Vital Signs (Past 24 Hours): Last Vital Signs Temp 36.6 C 05/31/18 07:00 Pulse 82 05/31/18 07:00 Resp 16 05/31/18 07:00 BP 117/74 05/31/18 07:00 Pulse Ox 94 05/31/18 07:00 Constitutional: WD/WN, vitals as above Eyes: PERRL, conjunctivae normal, anicteric sclerae ENMT: external ear and nose normal, oropharynx normal Neck: trachea midline, no thyromegaly Respiratory: normal respiratory effort, lungs clear to auscultation Cardiovascular: RRR, no murmur, no edema Gastrointestinal (Abdomen): normal bowel sounds, soft, nontender, no hepatosplenomegaly Musculoskeletal: Extremities: extremities normal to inspection; no cyanosis and no clubbing Skin: no rashes, warm and dry Neurologic: moves all extremities and awake; no focal motor deficits Psychiatric: A+Ox3, euthymic affect Results & Data Laboratory Results 05/31/18 05/31/18 Range/Units 08:01 08:01 WBC 6.49 (4.8-10.8) K/uL RBC 4.43 L (4.7-6.1) M/uL Hgb 14.0 (14.0-18.0) g/dL Hct 42.6 (42-52) % MCV 96.2 (80-100) fL MCH 31.6 (25-34) pg MCHC 32.9 (32-36) g/dL RDW Std Deviation 46.1 (36.4-46.3) fL RDW Coeff of [place] 13.0 (11.5-14.5) % Plt Count 110 L (130-400) K/uL MPV 11.3 H (7.4-10.4) fL Immature Gran % (Auto) 0.2 % Neut % (Auto) 58.6 % Lymph % (Auto) 26.2 % [place] % (Auto) 12.5 % Eos % (Auto) 2.2 % Baso % (Auto) 0.3 % Immature Gran # (Auto) 0.01 (0.00-0.02) K/uL Neut # (Auto) 3.81 (1.4-6.5) K/uL Lymph # (Auto) 1.70 (1.2-3.4) K/uL [place] # (Auto) 0.81 H (0.11-0.59) K/uL Eos # (Auto) 0.14 (0-0.5) K/uL Baso # (Auto) 0.02 (0-0.2) K/uL Sodium 143 (136-145) mmol/L Potassium 4.0 (3.5-5.1) mmol/L Chloride 112 H (98-107) mmol/L Carbon Dioxide 27 (21-32) mmol/L Anion Gap 4.0 (3-11) BUN 11 (7-18) mg/dl Creatinine 1.00 (0.6-1.4) mg/dl Est Cr Clr Drug Dosing 55.4 ml/min Est GFR ( Amer) 78.1 Est GFR (Non-Af Amer) 67.4 BUN/Creatinine Ratio 11.1 (10-20) Glucose 101 H (70-99) mg/dl Calcium 8.0 L (8.5-10.1) mg/dl (1) Hypertension Hypertension type: essential hypertension Qualified Code(s): I10 - Essential (primary) hypertension (2) BPH (benign prostatic hyperplasia) Lower urinary tract symptom presence: symptoms absent Qualified Code(s): N40.0 - Benign prostatic hyperplasia without lower urinary tract symptoms
[2018-05-31] MEDS ORDERED: LISINOPRIL 2.5 MG TAB PO ONE (18:13)
[2018-06-01] MEDS: ACETAMINOPHEN 325 MG TAB PO SCH ×2 (03:12→08:23)
[2018-06-01] MEDS ORDERED: BISACODYL 10 MG SUPP PR ONE (07:27)
--- NOTE | 2018-06-01 07:33 | Surgery Progress Note ---
Date of Service June 01, 2018 Assessment & Plan (1) SBO (small bowel obstruction): Peristalsis has returned SBO resolved We will advance to full liquid diet if tolerates that can consider soft diet for lunch No indication for surgical intervention at this time We will order a suppository to try to stimulate bowel movement Subjective Feels well Denies nausea and vomiting Passing flatus but has not had bowel movement yet Tolerated clear liquids well Physical Exam Vital Signs (Past 24 Hours): Last Vital Signs Temp 37.2 C 06/01/18 07:20 Pulse 73 06/01/18 07:20 Resp 16 06/01/18 07:20 BP 126/70 06/01/18 07:20 Pulse Ox 92 06/01/18 07:20 Gastrointestinal (Abdomen): Inspection/Auscultation: normal bowel sounds; abdomen not distended Percussion/Palpation: abdomen soft; abdomen nontender Results & Data Laboratory Results 05/31/18 05/31/18 Range/Units 08:01 08:01 WBC 6.49 (4.8-10.8) K/uL RBC 4.43 L (4.7-6.1) M/uL Hgb 14.0 (14.0-18.0) g/dL Hct 42.6 (42-52) % MCV 96.2 (80-100) fL MCH 31.6 (25-34) pg MCHC 32.9 (32-36) g/dL RDW Std Deviation 46.1 (36.4-46.3) fL RDW Coeff of [place] 13.0 (11.5-14.5) % Plt Count 110 L (130-400) K/uL MPV 11.3 H (7.4-10.4) fL Immature Gran % (Auto) 0.2 % Neut % (Auto) 58.6 % Lymph % (Auto) 26.2 % [place] % (Auto) 12.5 % Eos % (Auto) 2.2 % Baso % (Auto) 0.3 % Immature Gran # (Auto) 0.01 (0.00-0.02) K/uL Neut # (Auto) 3.81 (1.4-6.5) K/uL Lymph # (Auto) 1.70 (1.2-3.4) K/uL [place] # (Auto) 0.81 H (0.11-0.59) K/uL Eos # (Auto) 0.14 (0-0.5) K/uL Baso # (Auto) 0.02 (0-0.2) K/uL Sodium 143 (136-145) mmol/L Potassium 4.0 (3.5-5.1) mmol/L Chloride 112 H (98-107) mmol/L Carbon Dioxide 27 (21-32) mmol/L Anion Gap 4.0 (3-11) BUN 11 (7-18) mg/dl Creatinine 1.00 (0.6-1.4) mg/dl Est Cr Clr Drug Dosing 55.4 ml/min Est GFR ( Amer) 78.1 Est GFR (Non-Af Amer) 67.4 BUN/Creatinine Ratio 11.1 (10-20) Glucose 101 H (70-99) mg/dl Calcium 8.0 L (8.5-10.1) mg/dl
[2018-06-01] MEDS: TAMSULOSIN HCL 0.4 MG CAP PO SCH (08:21)
[2018-06-01] MEDS: HEPARIN SOD 5,000 UNIT/0.5 ML VIAL SQ SCH (08:22)
[2018-06-01] MEDS ORDERED: LISINOPRIL 2.5 MG TAB PO SCH (09:00)
[2018-06-01 12:02] VITALS: TEMP 97.5; O2SAT 97
--- NOTE | 2018-06-01 13:24 | Discharge Summary ---
Date of Service June 01, 2018 Admission HPI Per Admitting Provider 88yo male with BPH & HTN who presents with central abdominal pain starting acutely at 930 this am. He had eaten breakfast 1.5 hours prior. The pain has been sharp in quality and has been constant since beginning at home . No emesis but some nausea. Had a large, normal bowel movement this morning just before the pain started. Some of the pain had radiated to the back earlier this am; this has resolved. Denies any post-prandial pain over the last few weeks. He has had cold chills. No fever. As the encounter went on he stated that the pain peaks then improves, and repeats in that fashion. Principal Diagnosis Small bowel obstruction Discharge Exam Constitutional WD/WN, vitals as above Eyes PERRL, conjunctivae normal, anicteric sclerae ENMT external ear and nose normal, oropharynx normal Neck trachea midline, no thyromegaly Respiratory normal respiratory effort, lungs clear to auscultation Cardiovascular RRR, no murmur, no edema Gastrointestinal (Abdomen) normal bowel sounds, soft, nontender, no hepatosplenomegaly Musculoskeletal Extremities: extremities normal to inspection; no cyanosis and no clubbing Skin no rashes, warm and dry Neurologic moves all extremities and awake; no focal motor deficits Psychiatric A+Ox3, euthymic affect Discharge Data Allergies Allergy/AdvReac Type Severity Reaction Status Date / Time No Known Allergies Allergy Verified 05/28/18 11:07 Consultations 05/28/18 14:02 ED Decision to Admit Stat 05/28/18 16:18 Consult General Surgery Routine Ordered Studies 05/28/18 11:26 CT angio abdomen pelvis w con Stat CT angio chest dissec wo/w con Stat Abdominal series x-ray Hospital Course (1) Small bowel obstruction: Abdominal x-ray- supports developing SBO; CT on admission with concern for closed loop obstruction with developing compromise, mesenteric edema/fat stranding with possible transition point in midabdomen, no pneumatosis Has a history of 3 ventral hernia repairs as well as a left nephrectomy-could be from adhesive disease - NGT was placed for decompression; no leukocytosis, no lactic acidosis -Now passing flatus and has had some small and one very large bowel movement, NG tube has been removed -He was tolerating a regular diet at the time of discharge and is doing very well -Should follow-up with his usual surgeon within 2 weeks after discharge (2) 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 Blood pressures then increased and his lisinopril was restarted. Controlled at this time (4) BPH (benign prostatic hyperplasia): - STABLE - H/O prostate CA with seeds placed (remission) - Tamsulosin 0.4 mg daily (5) History of kidney cancer: Status post left nephrectomy (6) DVT prophylaxis: - Heparin SQ Was provided Disposition: Stable for discharge to home Total Time Total Time Spent Total Time Spent (In Minutes): Greater than 30 minutes Total Time Includes: Examination of the Patient, Discharge Planning, Medication Reconciliation and Communication With Other Providers (Surgery physician's assistant teacher primary) Discharge Plan Discharge Items Patient Disposition: Home - Self-Care Reason For Visit: ABDOMINAL PAIN Discharge Diagnosis: Small bowel obstruction Condition: Good Discharge Goals: Decrease discomfort, Diagnostic testing and Therapeutic intervention Activity: Resume your previous activity Lifting: Gradually increase as tolerated Bathing: No limitations Exercise/Sports: Gradually increase as tolerated Driving/Machine Use: No limitations Non-emergency contact: Primary Care Provider and Surgeon Call non-emergency contact if: you have any medication questions, your symptoms worsen, your pain is not controlled, your pain is worsening, your pain is unusual for you, your pain is concerning for you and you have a fever Follow-up/Referrals: Clay Rahman MD, FACS [Surgeon] - (Please call for an appointment within 1-2 weeks) Rayshawn Jorge MD [Primary Care Provider] - (Please call for an appointment within 1 week.) Diet: Regular Addtl Provider Instructions: You were admitted with a small bowel obstruction which was relieved with placing a nasogastric tube. It is important to keep herself from getting constipated. You can take MiraLAX, senna, and a fiber supplement to help move things along. This likely occurred due to scar tissue from your previous hernia surgeries. Please follow-up with Dr. Rahman within 2 weeks after discharge. Please also follow-up with your primary care physician within 1 week after discharge. Prescriptions: Continued sennosides [senna] 8.6 mg tablet 8.6 mg PO DAILY PRN (Reason: Nasal Congestion) RF: 0 lisinopril [Zestril] 2.5 mg tablet 2.5 mg PO DAILY RF: 0 tamsulosin [Flomax] 0.4 mg capsule 0.4 mg PO DAILY RF: 0 fluticasone propionate 50 mcg/actuation spray,suspension 1 sprays INTNAS DAILY PRN (Reason: Nasal Congestion) RF: 0 Stand-Alone Forms: [facility], [facility] Discharge Orders: Discharge Order (Routine); Ordered 06/01/18 Ordered By: Ruby Reeves Admission Data Admit Date/Time: 05/28/18 16:18 Attending Provider: Ruby Reeves Admit Provider: Jeramie Patel Primary Care Provider: Rayshawn Jorge Other Providers: Esther Jerez Jonathan R Service: Medical Other Pending Studies at Discharge: No
[2018-06-01 13:30] VITALS: BP 145/84; PULSE 80
== END 2018-06-01 14:12 | disposition home or self-care (01) | DRG 390 ==
LOC: ED 10:42 → SUATTDRO 16:18 → 3W 16:18